=== PATIENT | male | born 1950 | race Caucasian/White ===

== ENCOUNTER 2017-10-06 11:43 | Inpatient (IN) | payer OTHER ==
[2017-10-06] VITALS (18 sets, daily range): BP systolic 87–179; BP diastolic 51–109; PULSE 58–96; RESP 20–34; TEMP 98.3; O2SAT 88–100
[~2017-10-06] VITALS: Ht 188 cm; Wt 111.2 kg
[2017-10-06] MEDS ORDERED: SODIUM CHLORIDE 0.9% FLUSH 10 ML FLUSH IVF PRN (12:00)
[2017-10-06 12:14] LABS: AUTOMATED NEUTROPHIL # 10.3 TH/MM3 (1.8-7.7); BASOPHIL % 0.2 % (0.0-2.0); EOSINOPHIL # 0.3 TH/MM3 (0-0.4); EOSINOPHIL % 1.8 % (0.0-4.0); HEMATOCRIT 41.9 % (39.0-51.0); HEMOGLOBIN 13.1 GM/DL (13.0-17.0); LYMPH % 34.6 % (9.0-44.0); LYMPHOCYTE # 6.3 TH/MM3 (1.0-4.8); MEAN CELL VOLUME 95.2 FL (80.0-100.0); MEAN CORPUSCULAR HEMOGLOBIN 29.8 PG (27.0-34.0); MEAN CORPUSCULAR HGB CONC 31.3 % (32.0-36.0); MEAN PLATELET VOLUME 9.4 FL (7.0-11.0); MONO % 6.7 % (0.0-8.0); MONOCYTE # 1.2 TH/MM3 (0-0.9); NEUT % 56.7 % (16.0-70.0); PLATELET COUNT 271 TH/MM3 (150-450); RED CELL DISTRIBUTION WIDTH 15.2 % (11.6-17.2); WHITE BLOOD COUNT 18.1 TH/MM3 (4.0-11.0)
[2017-10-06] MEDS ORDERED: PROPOFOL 1000 MG/100 ML INJ 100 ML IV PRN ×2 (12:15→13:15)
--- NOTE | 2017-10-06 12:21 | RADRPT ---
EXAM DATE/TIME: 10/06/2017 12:02 [facility] COMPARISON: No previous studies available for comparison. INDICATIONS : Post intubation. MEDICAL HISTORY : Unresponsive. SURGICAL HISTORY : Unresponsive. ENCOUNTER: Initial ACUITY: 1 day PAIN SCORE: Non-responsive. LOCATION: chest FINDINGS: Single view of the lungs demonstrates the endotracheal tube well above the level of the thoracic inle t with recommendation to advance the endotracheal tube approximately 6 cm. These findings were referr ed to Dr. Bailey of the ER. There is a nasogastric tube with the proximal port at the level of the ga stroesophageal junction. The lungs are hyperinflated but clear. Heart size is normal. Moderate tortuosity of the thoracic aort a. Osseous structures appear intact. CONCLUSION: The endotracheal tube is positioned above the level of the thoracic inlet. Recommend advancement appr oximately 6 cm. The lungs are hyperinflated but clear. Roxanne Wise MD on October 06, 2017 at 12:14 Board Certified Radiologist. This report was verified electronically.
[2017-10-06 12:25] LABS: INTERNATIONAL NORMALIZED RATIO 1.1 RATIO; PROTHROMBIN TIME - PATIENT 10.7 SEC (9.8-11.6)
[2017-10-06 12:30] LABS: BICARBONATE 24.9 MEQ/L (21.0-32.0); BLOOD UREA NITROGEN 19 MG/DL (7-18); CALCIUM 8.3 MG/DL (8.5-10.1); CHLORIDE 102 MEQ/L (98-107); CREATININE 1.41 MG/DL (0.60-1.30); GLOMERULAR FILTRATION RATE 43 ML/MIN (>89); GLUCOSE,RANDOM 244 MG/DL (74-106); MAGNESIUM 2.6 MG/DL (1.5-2.5); SODIUM (NA) 141 MEQ/L (136-145)
[2017-10-06 12:34] LABS: TROPONIN I LESS THAN 0.02 NG/ML (0.02-0.05)
[2017-10-06] MEDS: SODIUM CHLOR 0.9% 1000 ML INJ 1,000 ML IV SCH ×2 (12:34→22:45)
[2017-10-06] MEDS ORDERED: TERBUTALINE INJ 1 MG/ML AMP SQ PRN (12:45)
[2017-10-06] MEDS ORDERED: NURSING INFORMATION XX SCH (12:45)
[2017-10-06] MEDS ORDERED: CHLORHEXIDINE GLUCONATE 2 % 1 PACK (2 CLOTHS) TOP PRN (12:45)
[2017-10-06] MEDS ORDERED: SODIUM CHLOR 0.9% 1000 ML INJ 1,000 ML IV ONE (12:45)
--- NOTE | 2017-10-06 12:46 | PD ---
HPI . Code Chief Complaint: Code Blue Time Seen by Provider: 11:53 Travel History International Travel<30 days: No (UNABLE TO OBTAIN) Contact w/Intl Traveler<30days: No (UNABLE TO OBTAIN) Traveled to known affect area: No (UNABLE TO OBTAIN) History of Present Illness HPI This patient presented to us via [facility] status post a respiratory arrest. History is obtained entirely from the medics. We do not know the patient's name. There is no family available. Medics report that the patient himself called 911 with respiratory distress. They state on the line with him until the arrival of EMS. EMS reports that the door was locked on their arrival and that they had to wait for the fire department to break the door so that they can get to the patient. In the interim, the patient suffered a respiratory arrest. They believe that his total downtime was less than 5 minutes. He did have a pulse when they found him. He was intubated. They state that they lost his pulse as they were taking him downstairs. He was given a dose of epinephrine and chest compressions were done. On the next pulse check, perhaps 5 minutes later, he did have a pulse. Compressions were then stopped and he was brought to the hospital. [facility] reports that they were told that the patient had emphysema. They did try to search the apartment and did not find any oxygen or nebulizer machine or inhalers or any other medications. [facility] Past Medical History Medical History: Unable to Obtain Diminished Hearing: No Tetanus Vaccination: Unknown Past Surgical History Surgical History: Unable to Obtain Social History Alcohol Use: No (UNABLE TO OBTAIN) Tobacco Use: No (UNABLE TO OBTAIN) Substance Use: No Allergies-Medications (Allergen,Severity, Reaction): Coded Allergies: No Allergy Information Available (Unverified , 10/06/17) Reported Meds & Prescriptions Reported Meds & Active Scripts Active Active Prescriptions or Reported Medications Unobtainable Review of Systems ROS Limitations: Clinical Condition, Intubated Physical Exam Narrative GENERAL: Patient presents intubated. SKIN: warm/dry. No obvious bruising or abrasions noted. HEAD: Normocephalic. Atraumatic. EYES: Pupils initially are fixed and dilated. ENT: No nasal bleeding or discharge. Mucous membranes pink and moist. NECK: Supple. Atraumatic. CARDIOVASCULAR: Monitor shows a sinus rhythm. On initial pulse check, no pulse was palpated. He did not have any apical heart tones. He did have cardiac activity on ultrasound. RESPIRATORY: Breath sounds are markedly diminished. GASTROINTESTINAL: Abdomen soft. Nondistended. : Normal uncircumcised male. MUSCULOSKELETAL: No obvious deformities. NEUROLOGICAL: GCS 3 on presentation. PSYCHIATRIC: Unable to assess. Data Data Last Documented VS Vital Signs Date Time Temp Pulse Resp B/P (MAP) Pulse Ox O2 Delivery O2 Flow Rate FiO2 10/06/17 12:00 100 10/06/17 12:00 100 10/06/17 12:00 98.3 96 20 147/67 (93) Ventilator Orders Orders Electrocardiogram (10/06/17 11:53) Basic Metabolic Panel (Bmp) (10/06/17 11:53) Complete Blood Count With Diff (10/06/17 11:53) Magnesium (Mg) (10/06/17 11:53) Prothrombin Time / Inr (Pt) (10/06/17 11:53) Act Partial Throm Time (Ptt) (10/06/17 11:53) Troponin I (10/06/17 11:53) Chest, Single Ap (10/06/17 11:53) Ecg Monitoring (10/06/17 11:53) Bilateral Bp Monitoring (10/06/17 11:53) Iv Access Insert/Monitor (10/06/17 11:53) Oximetry (10/06/17 11:53) Oxygen Administration (10/06/17 11:53) Sodium Chloride 0.9% Flush (Ns Flush) (10/06/17 12:00) Admit Order (Ed Use Only) (10/06/17 ) Housing Development Specialist / Telemetry [id number] (10/06/17 12:00) Vital Signs (Adult) Q4H (10/06/17 12:00) Diet Npo (10/06/17 Lunch) Activity Bed Rest (10/06/17 12:00) Notify Dr: Other (10/06/17 12:00) Labs Laboratory Tests Test 10/06/17 12:02 White Blood Count 18.1 TH/MM3 Red Blood Count 4.40 MIL/MM3 Hemoglobin 13.1 GM/DL Hematocrit 41.9 % Mean Corpuscular Volume 95.2 FL Mean Corpuscular Hemoglobin 29.8 PG Mean Corpuscular Hemoglobin Concent 31.3 % Red Cell Distribution Width 15.2 % Platelet Count 271 TH/MM3 Mean Platelet Volume 9.4 FL Neutrophils (%) (Auto) 56.7 % Lymphocytes (%) (Auto) 34.6 % Monocytes (%) (Auto) 6.7 % Eosinophils (%) (Auto) 1.8 % Basophils (%) (Auto) 0.2 % Neutrophils # (Auto) 10.3 TH/MM3 Lymphocytes # (Auto) 6.3 TH/MM3 Monocytes # (Auto) 1.2 TH/MM3 Eosinophils # (Auto) 0.3 TH/MM3 Basophils # (Auto) 0.0 TH/MM3 CBC Comment AUTO DIFF Prothrombin Time 10.7 SEC Prothromb Time International Ratio 1.1 RATIO Activated Partial Thromboplast Time 26.9 SEC Blood Urea Nitrogen 19 MG/DL Creatinine 1.41 MG/DL Random Glucose 244 MG/DL Calcium Level 8.3 MG/DL Magnesium Level 2.6 MG/DL Sodium Level 141 MEQ/L Potassium Level 4.2 MEQ/L Chloride Level 102 MEQ/L Carbon Dioxide Level 24.9 MEQ/L Anion Gap 14 MEQ/L Estimat Glomerular Filtration Rate 43 ML/MIN Troponin I LESS THAN 0.02 NG/ML MDM Medical Decision Making Medical Screen Exam Complete: Yes Emergency Medical Condition: Yes Interpretation(s) His EKG shows a right bundle branch block but no obvious ischemic changes Differential Diagnosis Differential diagnosis includes primary cardiac arrest, respiratory arrest, head injury, drug intoxication, diabetic coma Narrative Course This patient presents to us status post a respiratory arrest. He was intubated by EMS. They report a brief loss of pulse which returned with epinephrine and compressions. On arrival here, he did not have an apical heart rate or palpable distal pulses. He did have cardiac activity on ultrasound. CPR was continued. He was given epinephrine 2 and bicarbonate 1. On subsequent pulse check, he does have palpable pulses in all 4 extremities including pedal pulses. At this point, the motor vehicle field representative was consulted. He immediately came to see the patient and has assumed the patient's care. Please see the code sheet for further details of the resuscitation. The patient did start having some spontaneous respiratory effort and started moving some. Propofol was initiated. OG tube and Banerjee catheter were placed by the nursing staff. Soft restraints were placed when he started moving. Critical Care Narrative Aggregate critical care time was 30 minutes. Time to perform other separately billable procedures was not included in the critical care time. My time did not include minutes spent treating any other patients simultaneously or on activities that did not directly contribute to the patient's treatment. The services I provided to this patient were to treat and/or prevent clinically significant deterioration due to respiratory arrest leading to cardiac arrest I provided critical care services requiring my management, as noted below: Chart data review, documentation time, medication orders and management, vital sign assessments/reviewing monitor data, ordering and reviewing lab tests, ordering and interpreting/reviewing x-rays and diagnostic studies, care of the patient and discussion of the patient with the admitting physicians Procedures Procedure Narrative Basic CPR and ACLS were directed by me for about 10 minutes. Emergency department cardiac ultrasound was performed emergently Vascular probe was used in the four-chamber apical revealing positive cardiac activity. Diagnosis Primary Impression: Respiratory arrest Additional Impressions: Cardiac arrest Return of spontaneous circulation Admitting Information Admitting Physician Requests: Admit Scripts Unable to Obtain Active Prescriptions or Reported Meds Condition: Serious Rosanna Bailey MD October 06, 2017 12:46
[2017-10-06 12:51] LABS: BANDS 3 % (0-6); LYMPHOCYTES 33 % (9-44); MONOCYTES 9 % (0-8); MYELOCYTES 6 % (0-0); POLYS (SEG NEUTROPHILS) 46 % (16-70)
[2017-10-06] MEDS: ARTIFICIAL TEARS OPTH SOLN 15 ML BTL EACH EYE SCH ×2 (13:00→16:38)
--- NOTE | 2017-10-06 13:12 | HHI.HP ---
HPI Service Critical Care Medicine Primary Care Physician Unknown Admission Diagnosis s/p respiratory followed by cardiac arrest with ROSC Diagnosis: Chief Complaint: Post cardiac arrest Travel History International Travel<30 Days: No (UNABLE TO OBTAIN) Contact w/Intl Traveler <30 Da: No (UNABLE TO OBTAIN) Traveled to Known Affected Are: No (UNABLE TO OBTAIN) History of Present Illness Elderly gentleman with unknown medical history, except known emphysema, brought in by paramedics post cardiac arrest. History is obtained entirely from the ED chart. Patient's name and age as well as comorbidities are unknown. There is no family available. Per ED chart patient called 911 for respiratory distress. On EMS arrival patient suffered a respiratory arrest. He was intubated in the field, downtime was less than 5 minutes. He was given 1 dose of epinephrine and CPR was done with spontaneous return of spontaneous circulation. On ED arrival patient was in PEA, therefore resuscitative efforts were continued and patient received an additional 2 rounds of CPR with 2 epinephrine being given. ROSC was obtained after approximately less than 5 minutes. CCM now consulted for ICU admission. Patient was seen in ER, unresponsive, with questionable myoclonic versus seizure-like activity. He did not receive any sedation. Review of Systems ROS Limitations: Intubated Past Family Social History Allergies: Coded Allergies: No Allergy Information Available (Unverified , 10/06/17) Past Medical History Emphysema, rest unknown Past Surgical History Unknown Reported Medications Reported Meds & Active Scripts Active Active Prescriptions or Reported Medications Unobtainable Active Ordered Medications Current Medications Medications (Trade) Dose Ordered Sig/Travis Route Start Time Stop Time Status Last Admin (NS Flush) 2 ml UNSCH PRN IVF 10/06/17 12:00 Propofol 100 ml @ 0 mls/hr TITRATE PRN IV 10/06/17 12:15 10/06/17 12:23 Sodium Chloride 1,000 ml @ 125 mls/hr Q8H IV 10/06/17 12:34 (Pepcid Inj) 20 mg Q12HR IV PUSH 10/06/17 21:00 (Tears Naturale Opth Soln) 1 drop TID EACH EYE 10/06/17 13:00 (Duoneb Neb) 1 ampule Q6HR NEB INH 10/06/17 16:00 ([facility] Nursing Information) 1 [id number] XX 10/06/17 12:45 (Chlorhexidine 2% Cloth) 3 pack Taper DAILY@04 TOP 10/07/17 04:00 10/03/18 03:59 (Chlorhexidine 2% Cloth) 3 pack UNSCH PRN TOP 10/06/17 12:45 (Peridex 0.12% Liq) 15 ml BID@08,20 MT 10/06/17 20:00 Propofol 100 ml @ 0 mls/hr TITRATE PRN IV 10/06/17 12:45 UNV (Ativan Inj) 2 mg Q4H PRN IV PUSH 10/06/17 12:45 Norepinephrine Bitartrate 250 ml TITRATE PRN IV 10/06/17 12:45 UNV (Brethine Inj) 1 mg UNSCH PRN SQ 10/06/17 12:45 Sodium Chloride 1,000 ml @ 999 mls/hr BOLUS ONCE IV 10/06/17 12:45 10/06/17 13:45 Family History Unknown Social History Unknown Physical Exam Vital Signs Vital Signs Date Time Temp Pulse Resp B/P (MAP) Pulse Ox O2 Delivery O2 Flow Rate FiO2 10/06/17 12:56 86 20 109/52 (71) 100 Ventilator 100 10/06/17 12:45 85 20 87/51 (63) 100 Ventilator 100 10/06/17 12:15 84 20 132/65 (87) 100 Ventilator 100 10/06/17 12:00 100 10/06/17 12:00 100 100 10/06/17 12:00 98.3 96 20 147/67 (93) 100 Ventilator 100 10/06/17 12:00 100 Ventilator 100 10/06/17 11:58 87 23 163/72 (102) 98 Ventilator 10/06/17 11:58 98 Ventilator 100 10/06/17 11:46 20 179/71 (107) 98 Physical Exam General - elderly-appearing gentleman, intubated, unresponsive, ill-appearing HEENT - pupils equal, non-reactive, sclerae anicteric, neck supple, no nuchal rigidity, neck veins not distended, no carotid bruit, orally intubated CV - regular S1, S2, no murmurs Chest - decreased breath sounds bilateral, no wheezes appreciated Abdomen - soft, appears non-tender, distended, BS present, no hepatomegaly, no splenomegaly Skin - no rashes, no cyanosis Extremities - warm and well perfused, no edema, + peripheral pulses, no clubbing Neuro - intubated, on no sedation, unresponsive, does not withdraw or grimaces to painful stimuli, pupils are equal and not reactive, no corneal, overbreathing the ventilator Laboratory Laboratory Tests Test 10/06/17 12:02 White Blood Count 18.1 Red Blood Count 4.40 Hemoglobin 13.1 Hematocrit 41.9 Mean Corpuscular Volume 95.2 Mean Corpuscular Hemoglobin 29.8 Mean Corpuscular Hemoglobin Concent 31.3 Red Cell Distribution Width 15.2 Platelet Count 271 Mean Platelet Volume 9.4 Neutrophils (%) (Auto) 56.7 Lymphocytes (%) (Auto) 34.6 Monocytes (%) (Auto) 6.7 Eosinophils (%) (Auto) 1.8 Basophils (%) (Auto) 0.2 Neutrophils # (Auto) 10.3 Lymphocytes # (Auto) 6.3 Monocytes # (Auto) 1.2 Eosinophils # (Auto) 0.3 Basophils # (Auto) 0.0 CBC Comment AUTO DIFF Differential Total Cells Counted 100 Neutrophils % (Manual) 46 Band Neutrophils % 3 Lymphocytes % 33 Monocytes % 9 Eosinophils % 3 Neutrophils # (Manual) 10.0 Myelocytes 6 Differential Comment FINAL DIFF MANUAL Platelet Estimate NORMAL Platelet Morphology Comment NORMAL Prothrombin Time 10.7 Prothromb Time International Ratio 1.1 Activated Partial Thromboplast Time 26.9 Blood Urea Nitrogen 19 Creatinine 1.41 Random Glucose 244 Calcium Level 8.3 Magnesium Level 2.6 Sodium Level 141 Potassium Level 4.2 Chloride Level 102 Carbon Dioxide Level 24.9 Anion Gap 14 Estimat Glomerular Filtration Rate 43 Troponin I LESS THAN 0.02 Result Diagram: 10/06/17 1202 10/06/17 1202 Caprini VTE Risk Assessment Caprini VTE Risk Assessment: Mod/High Risk (score >= 2) Caprini Risk Assessment Model Point Value = 1 Point Value = 2 Point Value = 3 Point Value = 5 Age 41-60 Minor surgery BMI > 25 kg/m2 Swollen legs Varicose veins or History of unexplained or recurrent spontaneous Oral contraceptives or hormone replacement Sepsis (< 1 month) Serious lung disease, including pneumonia (< 1 month) Abnormal pulmonary function Acute myocardial infarction Congestive heart failure (< 1 month) History of inflammatory bowel disease Medical patient at bed rest Age 61-74 Arthroscopic surgery Major open surgery (> 45 min) Laparoscopic surgery (> 45 min) Malignancy Confined to bed (> 72 hours) Immobilizing plaster cast Central venous access Age >= 75 History of VTE Family history of VTE Factor V Leiden Prothrombin [id number] Lupus anticoagulant Anticardiolipin antibodies Elevated serum homocysteine Heparin-induced thrombocytopenia Other congenital or acquired thrombophilia Stroke (< 1 month) Elective arthroplasty Hip, pelvis, or leg fracture Acute spinal cord injury (< 1 month) Prophylaxis Regimen Total Risk Factor Score Risk Level Prophylaxis Regimen 0-1 Low Early ambulation 2 Moderate Order ONE of the following: *Sequential Compression Device (SCD) *Heparin 5000 units SQ BID 3-4 Higher Order ONE of the following medications: *Heparin 5000 units SQ TID *Enoxaparin/Lovenox 40 mg SQ daily (WT < 150 kg, CrCl > 30 mL/min) *Enoxaparin/Lovenox 30 mg SQ daily (WT < 150 kg, CrCl > 10-29 mL/min) *Enoxaparin/Lovenox 30 mg SQ BID (WT < 150 kg, CrCl > 30 mL/min) AND/OR *Sequential Compression Device (SCD) 5 or more Highest Order ONE of the following medications: *Heparin 5000 units SQ TID (Preferred with Epidurals) *Enoxaparin/Lovenox 40 mg SQ daily (WT < 150 kg, CrCl > 30 mL/min) *Enoxaparin/Lovenox 30 mg SQ daily (WT < 150 kg, CrCl > 10-29 mL/min) *Enoxaparin/Lovenox 30 mg SQ BID (WT < 150 kg, CrCl > 30 mL/min) AND *Sequential Compression Device (SCD) Assessment and Plan Assessment and Plan 1. Post PEA arrest 2 -total downtime approximately less than 10 minutes 2. Acute hypoxic respiratory failure 3. Acute encephalopathy with concern for anoxia 4. Myoclonus versus seizure like activity 5. YOLIE 6. Leukocytosis without clear evidence of infection 1. Start hypothermia protocol 2. Sedation with propofol and fentanyl. Demerol for shivering and if still uncontrolled we will start cisatracurium 3. Ativan as needed for seizure-like activity 4. Labs per protocol 5. Continue PRVC 500/20/40% PEEP of 5, Ti 0.9 6. Vent bundle and bronchodilators 7. Check lactic acid 8. Serial cardiac enzymes and echocardiogram 9. EKG 10. EEG and if any evidence of seizure will start antiepileptics 11. Cooling catheter has been placed as well as arterial line 12. Advance ET tube and repeat chest x-ray 13. No clear evidence of infection. We will hold antibiotics for now and send cultures 14. Urine drug screen 15. GI prophylaxis with Pepcid 16. DVT prophylaxis with heparin and SCDs Spent 42 minutes of critical care time, excluding procedures, managing patient postarrest, initiating hypothermia protocol, fluids, ventilator, reviewing data , ordering labs and investigations, discussing with ED physician, nursing staff , RT. No family present at bedside. Patient is critically ill post cardiac arrest and he is at very high risk for further decompensation and . Addendum: Patient was reassessed multiple times throughout the day. He remains unresponsive on minimal sedation. Patient had some seizure activity on EEG. Started on Keppra. Patient was bronched, significant amount of gastric secretions suctioned. He was empirically started on antibiotics. Worsening oxygenation, requiring higher PEEP and 100% O2. I spent an additional 25 minutes of critical care time excluding procedures managing worsening oxygenation and seizure. Jorge Rincon MD October 06, 2017 13:12
[2017-10-06] MEDS ORDERED: IODIXANOL 320 MG/ML 10 ML VIAL (for Rad CT) IVCONTRAST ONE (13:15)
[2017-10-06] MEDS ORDERED: NOREPINEPHRINE-DEXTROSE DRIP 250 ML IV PRN (13:15)
[2017-10-06] MEDS ORDERED: RASS Change Order XX ONE (13:15)
--- NOTE | 2017-10-06 13:33 | RADRPT ---
EXAM DATE/TIME: 10/06/2017 12:38 [facility] COMPARISON: No previous studies available for comparison. INDICATIONS : Post cardiac arrest, altered mental status. RADIATION DOSE: 53.97 CTDIvol (mGy) MEDICAL HISTORY : Non-responsive. SURGICAL HISTORY : Non-responsive. ENCOUNTER: Initial ACUITY: 1 day PAIN SCALE: Non-responsive LOCATION: cranial TECHNIQUE: Multiple contiguous axial images were obtained of the head. Using automated exposure control and adj ustment of the mA and/or kV according to patient size, radiation dose was kept as low as reasonably a chievable to obtain optimal diagnostic quality images. DICOM format image data is available electro nically for review and comparison. Moderate motion artifact is evident FINDINGS: CEREBRUM: The ventricles are normal for age. No evidence of midline shift, mass lesion, hemorrhage or acute in farction. No extra-axial fluid collections are seen. POSTERIOR FOSSA: The cerebellum and brainstem are intact. The 4th ventricle is midline. The cerebellopontine angle i s unremarkable. EXTRACRANIAL: The visualized portion of the orbits is intact. SKULL: The calvaria is intact. No evidence of skull fracture. CONCLUSION: Moderate motion otherwise negative Ayo Ibanez MD FACR on October 06, 2017 at 13:29 Board Certified Radiologist. This report was verified electronically.
--- NOTE | 2017-10-06 13:35 | RADRPT ---
EXAM DATE/TIME: 10/06/2017 12:52 [facility] COMPARISON: No previous studies available for comparison. INDICATIONS : Post cardiac arrest; evaluate for embolism. IV CONTRAST: 50 cc Visipaque (iodixanol) IV RADIATION DOSE: 23.38 CTDIvol (mGy) MEDICAL HISTORY : Non-responsive. SURGICAL HISTORY : Non-responsive. ENCOUNTER: Initial ACUITY: 1 day PAIN SCALE: Non-responsive LOCATION: chest TECHNIQUE: Volumetric scanning of the chest was performed using a pulmonary embolism protocol MIP images were re constructed. Using automated exposure control and adjustment of the mA and/or kV according to patien t size, radiation dose was kept as low as reasonably achievable to obtain optimal diagnostic quality images. DICOM format image data is available electronically for review and comparison. Follow-up recommendations for detected pulmonary nodules are based at a minimum on nodule size and pa tient risk factors according to Fleischner Society Guidelines. FINDINGS: Course interstitial changes both lungs with apical pleural thickening. Minimal parenchymal changes left base. No pleural effusion No central pulmonary emboli. No mediastinal adenopathy Upper abdominal contents grossly unremarkable CONCLUSION: No central pulmonary emboli Course interstitial changes both lungs, fibrosis versus atypical failure. Ayo Ibanez MD FACR on October 06, 2017 at 13:31 Board Certified Radiologist. This report was verified electronically.
[2017-10-06] MEDS: PROPOFOL 1000 MG/100 ML INJ 100 ML IV PRN (14:00)
[2017-10-06 14:06] LABS: BILIRUBIN, URINE NEG (NEG); BLOOD, URINE MOD (NEG); GLUCOSE,URINE TRACE mg/dL (NEG); KETONE, URINE NEG (NEG); MUCUS URINE FEW /lpf (OCC); NITRITE,URINE NEG (NEG); SQUAMOUS EPITHELIAL CELL URINE <1 /hpf (0-5); URINE COLOR YELLOW (YELLW/STRAW); URINE LEUKOCYTE ESTERASE NEG (NEG)
[2017-10-06] MEDS ORDERED: fentaNYL DRIP 250 ML IV PRN (14:15)
--- NOTE | 2017-10-06 14:28 | PD.PROCEDR ---
Central Line Procedure REASON FOR PROCEDURE Central venous access PROCEDURE PERFORMED Cooling catheter placement CONSENT Informed consent for procedure was not obtained since the procedure was emergent and there was no family available to provide consent. ANESTHESIA Local injection of 1% Lidocaine DESCRIPTION OF THE PROCEDURE The patient was placed in supine, mild Trendelenburg position. The area was exposed and cleansed with ChloraPrep, times two. Large sterile drape was used to cover the patient, with the site exposed, under sterile conditions including cap, face mask, sterile gown, and sterile gloves. On single attempt, the introducer needle was inserted with negative pressure in syringe and venous flash was obtained. The guide wire was then advanced without any restriction and the needle was removed. The dilator was used without any complications. Using Seldinger technique the Quatro catheter was advanced over the guide wire to a depth of 43 centimeters. The guide wire was removed. All ports were aspirated with dark venous blood return and flushed easily with sterile saline. All ports were capped. Antibiotic disc was placed around central line at puncture site. The central line was secured to the skin with two interrupted 2.0 silk sutures. The area was bandaged with sterile see-through central line bandage. RADIOLOGICAL DATA Ultrasound guidance was used to locate the right femoral vein. Doppler/color flow was used to confirm venous flow. COMPLICATIONS: No apparent complications ESTIMATED BLOOD LOSS: Less than 1 cc. Jorge Rincon MD October 06, 2017 14:28
[2017-10-06] MEDS ORDERED: NOREPINEPHRINE INJ 4 MG in SODIUM CHLOR 0.9% 250 ML INJ 246 ML IV PRN (14:45)
[2017-10-06 14:49] LABS: MAGNESIUM 2.6 MG/DL (1.5-2.5); PHOSPHORUS 7.9 MG/DL (2.5-4.9)
--- NOTE | 2017-10-06 14:54 | RADRPT ---
EXAM DATE/TIME: 10/06/2017 15:19 [facility] COMPARISON: CHEST SINGLE AP, October 06, 2017, 12:02. INDICATIONS : Short of Breath MEDICAL HISTORY : Non responsive SURGICAL HISTORY : Non responsive ENCOUNTER: Subsequent ACUITY: 1 day PAIN SCORE: Non-responsive. LOCATION: chest FINDINGS: Moderate hyperinflation. ET tube at thoracic inlet lungs are clear. No pneumothorax. No failure CONCLUSION: Hyperinflation, ET tube at thoracic inlet otherwise negative Ayo Ibanez MD FACR on October 06, 2017 at 14:50 Board Certified Radiologist. This report was verified electronically.
[2017-10-06] MEDS: RESP: ALBUTEROL 2.5 MG/IPRATROPIUM 0.5 MG NEB (SCH) INH ×2 (14:56→20:53)
[2017-10-06] MEDS: MEPERIDINE HCL 25 MG/ML VIAL IV PUSH PRN ×3 (15:17→23:07)
[2017-10-06] MEDS ORDERED: ROCURONIUM INJ 50 MG/5 ML VIAL ONE (15:30)
[2017-10-06] MEDS ORDERED: ROCURONIUM INJ 50 MG/5 ML VIAL IV ONE (16:30)
--- NOTE | 2017-10-06 16:34 | PD.PROCEDR ---
Procedure Note Procedure Endotracheal Intubation Diagnosis: Cardiac arrest, acute respiratory failure Indications: Patient already intubated but ET tube very high not able to advance it further Consent: Not obtained due to the emergency of the procedure and to the fact that there was no family available for consent Anesthesia: Propofol infusion was continued, rocuronium 50 mg 1 dose was given Description of the Procedure: The patient was positioned in the sniffing position. Pre-oxygenation was performed using 100% O2 via the ventilator. A video laryngoscope (Glidescope) size 4 was used for laryngoscopy and a Grade 1 view was obtained. An 8 mm cuffed endotracheal tube was inserted atraumatically through the vocal cords. Confirmation of correct endotracheal tube placement was made by equal and bilateral breath sounds and colorimetric CO2 detection. The endotracheal tube was secured at 24 cm at the teeth. There were no immediate complications noted. The patient remained hemodynamically stable throughout the procedure. A chest x-ray has been ordered. Of note, initially tube exchange was attempted but once the new ET tube was inserted I had color change but no clear breath sounds were heard. Tube was removed and reintubation was attempted. Patient was intubated on first attempt however there was some resistance passing the ET tube after it past the vocal cords. Patient's O2 sat remained at 100% during the whole procedure. Jorge Rincon MD October 06, 2017 16:34
[2017-10-06] MEDS: CISATRACURIUM INJ 100 MG in SODIUM CHLOR 0.9% 250 ML INJ 250 ML IV PRN (16:40)
[2017-10-06] MEDS: HEPARIN SODIUM - SQ 10,000 UNITS/ML VIAL SQ SCH ×2 (16:40→19:53)
--- NOTE | 2017-10-06 16:40 | PD.PROCEDR ---
Procedure Note Procedure Procedure: Fiberoptic Bronchoscopy Diagnosis: Cardiac arrest, acute respiratory failure Indications: Acute respiratory failure, increased purulent secretions Consent: Not obtained, due to the emergency of the situation and there was no family present at bedside Anesthesia: Propofol drip was continued, patient received rocuronium during the endotracheal intubation Description of the Procedure: The patient was sedated and mechanically ventilated. The patient was placed on 100% FIO2 and a volume control mode of ventilation. The fiberoptic bronchoscopy was inserted via the ET tube. The trachea, right and left mainstem bronchi, and sub-segmental bronchi were evaluated. The endobronchial anatomy was normal. No endobronchial lesions identified. Findings: Thin copious amount of gastric secretions BAL samples: From left lower lobe The patient tolerated the procedure well with no hemodynamic instability or hypoxia. There were no immediate complications noted. At the conclusion of the procedure, the patient was placed back on their pre-procedure ventilatory settings. There was minimal EBL. A chest x-ray has been ordered. Jorge Rincon MD October 06, 2017 16:40
--- NOTE | 2017-10-06 17:01 | RADRPT ---
EXAM DATE/TIME: 10/06/2017 17:32 [facility] COMPARISON: CHEST SINGLE AP, October 06, 2017, 15:19. INDICATIONS : ET tube exchange. MEDICAL HISTORY : None. SURGICAL HISTORY : None. ENCOUNTER: Initial ACUITY: 1 day PAIN SCORE: Non-responsive. LOCATION: Bilateral chest FINDINGS: ET tube and nasogastric tube in good position. Stable minimal bibasilar parenchymal changes. The heart and pulmonary vascularity are normal. CONCLUSION: ET tube and nasogastric tube in good position. Ayo Ibanez MD FACR on October 06, 2017 at 16:58 Board Certified Radiologist. This report was verified electronically.
[2017-10-06] MEDS ORDERED: MIDAZOLAM 100 MG/100 ML INJ 100 ML IV PRN (17:15)
--- NOTE | 2017-10-06 17:15 | MG ---
cc: Kim Timmons MD, Dalia MD EEG RECORD [id number] REFERRING PHYSICIAN: Dr. Rincon INDICATION: Intubated with photic done. Diprivan at 10 mcg, unresponsive on code cool. Male of unknown age. Called EMS went into respiratory distress. Took EMS 5 minutes to get to him due to locked door, lost pulse. CPR done. MEDICATIONS: 1. Demerol. 2. Propofol. 3. Norepinephrine on code cool DESCRIPTION OF RECORD: There is quite a bit of whole body shaking artifact. Difficult to tell any background true rhythm, more artifact in the frontal fuentes, all myogenic unfortunately. EKG is artifactual as well. There is no driving response to photic stimulation. IMPRESSION: Poor quality electroencephalogram, unable to detect to determine a true background rhythm given the artifact in this recording. However, no gross epileptic activity noted. Likely will need a repeat study at some point. Clinical correlation. MD EDU Dinh/ , 03:21 PM , 05:14 PM
[2017-10-06] MEDS: levETIRAcetam INJ 100 ML IV SCH ×2 (17:43→19:53)
[2017-10-06] MEDS: PIPERACIL-TAZO 3.375 GM PREMIX 50 ML IV SCH ×2 (17:46→23:06)
[2017-10-06] MEDS: CHLORHEXIDINE 0.12% (ORAL KIT) 15 ML CUP MT SCH (19:39)
[2017-10-06] MEDS: FAMOTIDINE 20 MG/2 ML VIAL IV PUSH SCH (19:53)
[2017-10-07] VITALS (19 sets, daily range): BP systolic 49–181; BP diastolic 39–96; PULSE 69–125; RESP 20; O2SAT 87–100
[2017-10-07] MEDS: CHLORHEXIDINE GLUCONATE 2 % 1 PACK (2 CLOTHS) TOP SCH (03:44)
[2017-10-07] MEDS: MEPERIDINE HCL 25 MG/ML VIAL IV PUSH PRN (04:01)
[2017-10-07] MEDS: RESP: ALBUTEROL 2.5 MG/IPRATROPIUM 0.5 MG NEB (SCH) INH ×4 (04:06→20:48)
[2017-10-07 04:07] LABS: AUTOMATED NEUTROPHIL # 25.4 TH/MM3 (1.8-7.7); BASOPHIL % 0.1 % (0.0-2.0); EOSINOPHIL % 0.1 % (0.0-4.0); HEMATOCRIT 46.8 % (39.0-51.0); HEMOGLOBIN 15.2 GM/DL (13.0-17.0); LYMPH % 3.8 % (9.0-44.0); MEAN CELL VOLUME 90.8 FL (80.0-100.0); MEAN CORPUSCULAR HEMOGLOBIN 29.4 PG (27.0-34.0); MEAN CORPUSCULAR HGB CONC 32.4 % (32.0-36.0); MEAN PLATELET VOLUME 8.5 FL (7.0-11.0); MONO % 4.1 % (0.0-8.0); MONOCYTE # 1.1 TH/MM3 (0-0.9); NEUT % 91.9 % (16.0-70.0); PLATELET COUNT 225 TH/MM3 (150-450); RED BLOOD COUNT 5.15 MIL/MM3 (4.50-5.90); RED CELL DISTRIBUTION WIDTH 15.3 % (11.6-17.2); WHITE BLOOD COUNT 27.6 TH/MM3 (4.0-11.0)
[2017-10-07 04:10] LABS: INTERNATIONAL NORMALIZED RATIO 1.1 RATIO; PROTHROMBIN TIME - PATIENT 10.9 SEC (9.8-11.6)
[2017-10-07 04:28] LABS: ALBUMIN 2.6 GM/DL (3.4-5.0); CALCIUM-PROTEIN CORRECTED 7.6 MG/DL (8.5-10.1); CREATININE 0.88 MG/DL (0.60-1.30); MAGNESIUM 1.8 MG/DL (1.5-2.5); PHOSPHORUS 3.5 MG/DL (2.5-4.9); TOTAL BILIRUBIN ADULT 0.7 MG/DL (0.2-1.0); TOTAL PROTEIN 5.9 GM/DL (6.4-8.2)
--- NOTE | 2017-10-07 04:41 | RADRPT ---
EXAM DATE/TIME: 10/07/2017 04:28 [facility] COMPARISON: CHEST SINGLE AP, October 06, 2017, 17:32. INDICATIONS : Shortness of breath, MEDICAL HISTORY : None. SURGICAL HISTORY : None. ENCOUNTER: Subsequent ACUITY: 2 days PAIN SCORE: Non-responsive. LOCATION: Bilateral chest FINDINGS: 2 AP semierect views of the chest were obtained and again demonstrate the endotracheal tube in place with the tip proximally 5 cm above the og. Nasogastric tube remains in place and is seen coursing through the esophagus into the stomach. There is new focal consolidation in the right lung. Infiltra te is present in both lung bases. The heart size remains within normal limits. The costophrenic angle s may be mildly blunted. CONCLUSION: 1. New focal consolidation in the right lung base most characteristic of pneumonia. 2. More diffuse opacity is present in both lung bases as well. Duarte Reyes MD on October 07, 2017 at 4:38 Board Certified Radiologist. This report was verified electronically.
[2017-10-07] MEDS: CISATRACURIUM INJ 100 MG in SODIUM CHLOR 0.9% 250 ML INJ 250 ML IV PRN ×3 (04:55→21:11)
[2017-10-07] MEDS: PIPERACIL-TAZO 3.375 GM PREMIX 50 ML IV SCH ×3 (05:18→17:38)
[2017-10-07] MEDS: SODIUM CHLOR 0.9% 1000 ML INJ 1,000 ML IV SCH ×3 (06:25→20:34)
[2017-10-07] MEDS ORDERED: Vancomycin Consult Pharmacy 1 EA OTHER SCH (06:30)
[2017-10-07] MEDS: levETIRAcetam INJ 100 ML IV SCH ×2 (07:55→21:14)
[2017-10-07] MEDS: FAMOTIDINE 20 MG/2 ML VIAL IV PUSH SCH ×2 (07:55→21:13)
[2017-10-07] MEDS: CHLORHEXIDINE 0.12% (ORAL KIT) 15 ML CUP MT SCH ×2 (07:56→21:17)
[2017-10-07] MEDS: HEPARIN SODIUM - SQ 10,000 UNITS/ML VIAL SQ SCH ×2 (07:56→21:12)
[2017-10-07] MEDS ORDERED: VANCOMYCIN INJ 2,000 MG in SODIUM CHLORID 0.9% 500 ML INJ 500 ML IV ONE (08:00)
[2017-10-07 08:27] LABS: BANDS 19 % (0-6); LYMPHOCYTES 1 % (9-44); MONOCYTES 4 % (0-8); MYELOCYTES 2 % (0-0); NEUTROPHIL # MANUAL DIFF 26.2 TH/MM3 (1.8-7.7); POLYS (SEG NEUTROPHILS) 74 % (16-70)
[2017-10-07] MEDS: LORazepam 2 MG/ML VIAL IV PUSH PRN (08:55)
[2017-10-07] MEDS: ARTIFICIAL TEARS OPTH SOLN 15 ML BTL EACH EYE SCH ×3 (09:00→17:38)
[2017-10-07] MEDS ORDERED: FOSPHENYTOIN IV ONE (10:00)
[2017-10-07] MEDS ORDERED: SODIUM CHLORIDE IV ONE (10:00)
[2017-10-07] MEDS ORDERED: NOREPINEPHRINE 4 MG/4 ML AMP ONE (10:28)
[2017-10-07 10:49] LABS: BICARBONATE 25.7 MEQ/L (21.0-32.0); CALCIUM 6.5 MG/DL (8.5-10.1); CREATININE 1.01 MG/DL (0.60-1.30); MAGNESIUM 1.7 MG/DL (1.5-2.5)
[2017-10-07] MEDS: VASOPRESSIN 40 U/D5W 100 ML Hypotension, do NOT titrate (enter ordered rate) IV SCH ×2 (11:07)
--- NOTE | 2017-10-07 11:11 | MB ---
cc: Kim Timmons MD DATE: 10/07/2017 AKA: Carlos Gómez. HISTORY OF PRESENT ILLNESS: This is a 67-year-old man with a history of COPD, brought in by paramedics in cardiac arrest. On arrival by EMS, he was in respiratory arrest, intubated in the field. Downtime per chart notes states less than 5 minutes. He was given a dose of epinephrine and CPR was performed. Spontaneous circulation returned in the ED, he was in PEA and received 2 more rounds of CPR with 2 epinephrine being given. He is now intubated in the ICU. Had seizures on his EEG this morning, was given some Ativan and his blood pressure decreased significantly and now is on a pressor. Blood pressure returning to normal. He was started on Keppra last night. PAST MEDICAL HISTORY: As far as we know: Emphysema. Other history: Unknown. PHYSICAL EXAMINATION: Vitals currently, per chart. He is intubated on a ventilator on fentanyl. He is code cool as well and he is on a paralytic, so there is no exam. He does not withdraw, does not move. There is no withdrawal whatsoever. Does not follow any commands. LABORATORY DATA: Reviewed. His white count today is 27.6, platelets are 225,000, hemoglobin 15.2. Coag panel is normal. Chemistries show a calcium of 7. Lactic acid 1.4, glucose 201, AST 82, ALT 167, albumin 2.6. Urine 19 RBCs. Culture was not indicated. Tox screen was negative. Microbiology is still pending. He had a chest x-ray this morning that shows new focal consolidation right lung base, likely pneumonia. Diffuse opacities in both lung bases as well. CT angiography did not yield any PE. Head CT showed moderate motion artifact, but negative otherwise. His EEG last night, there was a lot of artifact, but once Diprivan was given there were no more. The background was very difficult to determine, is a very poor quality; however, I am told today's EEG and I need to look at, had spike and wave discharges. ASSESSMENT AND PLAN: This is a 67-year-old man status post respiratory arrest. CPR with what looks like seizures, likely due to anoxic encephalopathy. Recommend repeating an EEG. Keep him on EEG monitoring as possible for the mere fact that they are only witnessed electroencephalographically. I am going to load him with some Cerebyx and keep him on a maintenance dose. Also, try to get a repeat CT tomorrow if possible. Continue to monitor and make further recommendations. Also, continue Cerebyx 100 mg q. 8 hours with a level. MD EDU Dinh/AMIE , 10:19 AM , 11:10 AM
[2017-10-07] MEDS ORDERED: MAGNESIUM SULFATE 1 GM PREMIX 100 ML IV ONE (11:15)
[2017-10-07] MEDS ORDERED: GLUCAGON 1 MG/ML VIAL OTHER PRN (11:15)
[2017-10-07] MEDS ORDERED: ALBUMIN 5% INJ 500 ML IV ONE (11:15)
[2017-10-07] MEDS ORDERED: DEXTROSE 50% IN WATER 50 ML VIAL(D50) IV PUSH PRN (11:15)
--- NOTE | 2017-10-07 11:22 | HHI.CCPN ---
Subjective Remarks/Hospital Course 10/06: Elderly gentleman with unknown medical history, except known emphysema, brought in by paramedics post cardiac arrest. History is obtained entirely from the ED chart. Patient's name and age as well as comorbidities are unknown. There is no family available. Per ED chart patient called 911 for respiratory distress. On EMS arrival patient suffered a respiratory arrest. He was intubated in the field, downtime was less than 5 minutes. He was given 1 dose of epinephrine and CPR was done with spontaneous return of spontaneous circulation. On ED arrival patient was in PEA, therefore resuscitative efforts were continued and patient received an additional 2 rounds of CPR with 2 epinephrine being given. ROSC was obtained after approximately less than 5 minutes. [facility] now consulted for ICU admission. Patient was seen in ER, unresponsive, with questionable myoclonic versus seizure-like activity. He did not receive any sedation. 10/07: Patient continued to worsen over the night, with progressive hypercapnia and hypoxia, requiring pressure control ventilation with inverse ratio. Currently on a PEEP of 8 at 100% O2. He continues to require 24 hour EEG monitoring. Patient patient was noticed to have episode of seizure on EEG therefore he received Ativan and fosphenytoin with subsequent drop in blood pressure. He received 1 L fluid bolus and he was started on norepinephrine infusion. Currently on norepinephrine at 15 mcg/min. Morning chest x-ray reviewed, developing bilateral infiltrates and new right lower lobe infiltrate. Of note, patient was identified as being Mr. Arellano, recently admitted to our hospital for acute hypercapnic respiratory failure, acute COPD exacerbation, extubated last Sunday discharged on Sunday morning. Objective Vital Signs Date Time Temp Pulse Resp B/P (MAP) Pulse Ox O2 Delivery O2 Flow Rate FiO2 10/07/17 11:07 83 104/67 10/07/17 09:29 95 100 10/07/17 04:00 92.1 20 10/06/17 12:56 Ventilator Intake and Output 10/07/17 10/07/17 10/08/17 08:00 16:00 00:00 Intake Total 1454 ml Output Total 1900 ml Balance -446 ml Result Diagram: 10/07/17 0340 10/07/17 0930 Other Results Microbiology Date/Time Source Procedure Growth Status 10/06/17 17:02 Blood Peripheral Aerobic Blood Culture - Preliminary NO GROWTH IN 1 DAY Resulted 10/06/17 17:02 Blood Peripheral Anaerobic Blood Culture - Preliminary NO GROWTH IN 1 DAY Resulted 10/06/17 16:50 Blood Peripheral Aerobic Blood Culture - Preliminary NO GROWTH IN 1 DAY Resulted 10/06/17 16:50 Blood Peripheral Anaerobic Blood Culture - Preliminary NO GROWTH IN 1 DAY Resulted 10/06/17 16:19 Sputum Endotracheal Gram Stain - Final Resulted 10/06/17 16:19 Sputum Endotracheal Sputum Culture Pending Resulted 10/06/17 13:32 Sputum Endotracheal Gram Stain - Final Resulted 10/06/17 13:32 Sputum Endotracheal Sputum Culture Pending Resulted Laboratory Tests Test 10/06/17 14:45 10/06/17 17:30 10/06/17 19:25 10/06/17 21:34 Blood Gas Puncture Site ART LINE ART LINE ART LINE ART LINE Blood Gas Patient Temperature 98.6 98.6 98.6 98.6 Blood Gas HCO3 27 mmol/L (22-26) 28 mmol/L (22-26) 29 mmol/L (22-26) 27 mmol/L (22-26) Blood Gas Base Excess 0.6 mmol/L (-2-2) 0.6 mmol/L (-2-2) 1.2 mmol/L (-2-2) 0.9 mmol/L (-2-2) Blood Gas Oxygen Saturation 89 % (90-100) 88 % (90-100) 96 % (90-100) 89 % ( 90-100) Arterial Blood pH 7.23 (7.380-7.420) 7.19 (7.380-7.420) 7.19 (7.380-7.420) 7.27 (7.380-7.420) Arterial Blood Partial Pressure CO2 68 mmHg (38-42) 77 mmHg (38-42) 79 mmHg (38-42) 61 mmHg (38-42) Arterial Blood Partial Pressure O2 73 mmHg (61-120) 71 mmHg (61-120) 124 mmHg (61-120) 70 mmHg (61-120) Arterial Blood Oxygen Content 16.1 Vol % (12.0-20.0) 16.8 Vol % (12.0-20.0) 19.1 Vol % (12.0-20.0) 18.3 Vol % (12.0-20.0) Arterial Blood Carboxyhemoglobin 0.8 % (0-4) 0.8 % (0-4) 0.7 % (0-4) 0.9 % (0-4) Arterial Blood Methemoglobin 1.4 % (0-2) 1.3 % (0-2) 1.3 % (0-2) 1.4 % (0-2) Blood Gas Hemoglobin 12.9 G/DL (12.0-16.0) 13.7 G/DL (12.0-16.0) 14.2 G/DL (12.0-16.0) 14.5 G/DL (12.0-16.0) Oxygen Delivery Device VENTILATOR VENTILATOR VENTILATOR VENTILATOR Blood Gas Ventilator Setting PRVC/AC500/20/5PEEP PRVC/AC450/32 PRVC/AC PC/AC Blood Gas Inspired Oxygen 40 % 100 % 100 % 70 % Test 10/07/17 05:45 10/07/17 09:32 Blood Gas Puncture Site ART LINE ART LINE Blood Gas Patient Temperature 98.6 98.6 Blood Gas HCO3 24 mmol/L (22-26) 22 mmol/L (22-26) Blood Gas Base Excess -1.4 mmol/L (-2-2) -4.4 mmol/L (-2-2) Blood Gas Oxygen Saturation 89 % (90-100) 90 % (90-100) Arterial Blood pH 7.29 (7.380-7.420) 7.25 (7.380-7.420) Arterial Blood Partial Pressure CO2 52 mmHg (38-42) 51 mmHg (38-42) Arterial Blood Partial Pressure O2 68 mmHg (61-120) 75 mmHg (61-120) Arterial Blood Oxygen Content 19.1 Vol % (12.0-20.0) 17.4 Vol % (12.0-20.0) Arterial Blood Carboxyhemoglobin 0.9 % (0-4) 0.9 % (0-4) Arterial Blood Methemoglobin 1.3 % (0-2) 1.3 % (0-2) Blood Gas Hemoglobin 15.2 G/DL (12.0-16.0) 13.8 G/DL (12.0-16.0) Oxygen Delivery Device VENTILATOR VENTILATOR Blood Gas Ventilator Setting PC/AC Blood Gas Inspired Oxygen 100 % 100 % Imaging Last Impressions Chest X-Ray 10/07/17 0000 Signed Impressions: Service Date/Time: Saturday, October 07, 2017 04:28 - CONCLUSION: 1. New focal consolidation in the right lung base most characteristic of pneumonia. 2. More diffuse opacity is present in both lung bases as well. Duarte Reyes MD CT Angiography 10/06/17 1219 Signed Impressions: Service Date/Time: Friday, October 06, 2017 12:52 - CONCLUSION: No central pulmonary emboli Course interstitial changes both lungs, fibrosis versus atypical failure. Ayo Ibanez MD FACR Head CT 10/06/17 1216 Signed Impressions: Service Date/Time: Friday, October 06, 2017 12:38 - CONCLUSION: Moderate motion otherwise negative Ayo Ibanez MD FACR Objective Remarks General - elderly gentleman, intubated, unresponsive, ill-appearing HEENT - pupils are equal, non-reactive, sclerae are anicteric, neck is supple, no rigidity, no JVD, orally intubated CV - regular heart sound, no murmurs Chest - decreased air entry bilateral, no wheezes appreciated Abdomen - soft, appears non-tender, distended, BS present Skin - no rashes, no cyanosis Extremities - no edema, + peripheral pulses, no clubbing Neuro - limited, intubated, unresponsive, paralyzed A/P Assessment and Plan 1. Post PEA arrest 2 -total downtime approximately less than 10 minutes, undergoing hypothermia protocol 2. Acute on chronic hypoxic and hypercapnic respiratory failure 3. Acute encephalopathy with concern for anoxia 4. Status epilepticus 5. Circulatory shock 6. YOLIE 7. Aspiration pneumonia 8. Hypomagnesemia and hypocalcemia 1. Continue hypothermia protocol 2. Sedation as needed with Versed and paralysis with cisatracurium for shivering 3. Change pressure control ventilation to PRVC, 550/26/100%, PEEP of 10. No auto PEEP, PIP is 28 4. Start inhaled Flolan 5. Start steroids 6. Continue norepinephrine to keep map above 65 7. 500 mL's albumin bolus 8. Replete calcium and magnesium 9. Continue Zosyn and add Vanco 10. Cultures sent yesterday 11. Continuous EEG and neurology consult 12. Loaded with Keppra yesterday and now loaded with fosphenytoin 13. Echocardiogram 14. GI prophylaxis with Pepcid 15. DVT prophylaxis with heparin and SCDs 16. Patient known to palliative care service since last admission. Will consult on Mendel 17. In his living will patient does not want any of his family to be contacted. We will comply with patient's wishes. I spent 34 minutes of critical care time, excluding procedures, managing fluids , pressors, electrolytes, ventilator, reviewing data, ordering labs and investigations, discussing nursing staff, RT. No family present at bedside. Patient is critically ill post cardiac arrest and he is at very high risk for further decompensation and . Jorge Rincon MD October 07, 2017 11:22
[2017-10-07] MEDS: methylPREDNISolone SOD SUCC 40 MG/1 ML VIAL IV PUSH SCH ×2 (11:25→17:38)
[2017-10-07 11:28] LABS: CALCIUM-PROTEIN CORRECTED 7.6 MG/DL (8.5-10.1); TOTAL PROTEIN 4.8 GM/DL (6.4-8.2)
[2017-10-07] MEDS: MIDAZOLAM 50 MG/NS 50 ML DRIP Premix IV PRN ×2 (11:45→23:00)
[2017-10-07] MEDS: EPOPROSTENOL NEB SOLUTION 50 NG/KG/MIN 100 ML NEB SCH ×4 (12:00→20:00)
[2017-10-07] MEDS: INSULIN NovoLIN REGULAR SUPPLEMENTAL SCALE SQ SCH ×3 (12:55→21:00)
[2017-10-07] MEDS ORDERED: CALCIUM GLUCONATE INJ 1 GM in SODIUM CHLORIDE 0.9% INJ 100 ML IV ONE (13:00)
[2017-10-07] MEDS: FOSPHENYTOIN SODIUM 100 MG PE/2 ML VIAL IV SCH ×2 (15:02→21:13)
[2017-10-07] MEDS: ARTIFICIAL TEARS OPTH OINT 3.5 APPLIC/3.5 GM TUBO EACH EYE PRN (16:31)
[2017-10-07 16:35] LABS: CALCIUM 7.1 MG/DL (8.5-10.1); CREATININE 0.93 MG/DL (0.60-1.30); MAGNESIUM 2.1 MG/DL (1.5-2.5)
[2017-10-07 16:51] LABS: CALCIUM-PROTEIN CORRECTED 8.1 MG/DL (8.5-10.1); TOTAL PROTEIN 5.3 GM/DL (6.4-8.2)
--- NOTE | 2017-10-07 17:22 | EKG ---
Date Performed: 10/06/2017 Time Performed: 21:05:25 PTAGE: 89 years EKG: Sinus rhythm WITH OCCASIONAL VENTRICULAR PREMATURE COMPLEXES ABNORMAL ECG NO PREVIOUS TRACING DOCTOR: Kobe Solomon Interpretating Date/Time 10/07/2017 17:20:05
[2017-10-07] MEDS: VANCOMYCIN 1,500 MG/NS 500 ML IV SCH ×2 (21:17)
[2017-10-07 22:37] LABS: BICARBONATE 23.3 MEQ/L (21.0-32.0); CALCIUM 7.3 MG/DL (8.5-10.1); CREATININE 0.98 MG/DL (0.60-1.30); MAGNESIUM 1.9 MG/DL (1.5-2.5)
[2017-10-07 22:47] LABS: PHENYTOIN (DILANTIN) 7.7 MCG/ML (10.0-20.0)
[2017-10-07 22:50] LABS: CALCIUM-PROTEIN CORRECTED 8.5 MG/DL (8.5-10.1)
[2017-10-08] VITALS (18 sets, daily range): BP systolic 92–144; BP diastolic 49–71; PULSE 95–110; RESP 26; TEMP 97.7–98.7; O2SAT 94–100
[2017-10-08] MEDS: methylPREDNISolone SOD SUCC 40 MG/1 ML VIAL IV PUSH SCH ×5 (00:39→22:22)
[2017-10-08] MEDS: PIPERACIL-TAZO 3.375 GM PREMIX 50 ML IV SCH ×5 (00:39→22:20)
[2017-10-08] MEDS: CHLORHEXIDINE GLUCONATE 2 % 1 PACK (2 CLOTHS) TOP SCH (00:40)
[2017-10-08] MEDS: EPOPROSTENOL NEB SOLUTION 50 NG/KG/MIN 100 ML NEB SCH ×6 (03:25→20:00)
[2017-10-08] MEDS: FOSPHENYTOIN SODIUM 100 MG PE/2 ML VIAL IV SCH ×3 (04:08→22:13)
[2017-10-08] MEDS: SODIUM CHLOR 0.9% 1000 ML INJ 1,000 ML IV SCH (04:08)
[2017-10-08] MEDS: CISATRACURIUM INJ 100 MG in SODIUM CHLOR 0.9% 250 ML INJ 250 ML IV PRN (04:08)
[2017-10-08] MEDS: RESP: ALBUTEROL 2.5 MG/IPRATROPIUM 0.5 MG NEB (SCH) INH ×4 (04:20→20:07)
--- NOTE | 2017-10-08 05:19 | RADRPT ---
EXAM DATE/TIME: 10/08/2017 04:56 [facility] COMPARISON: CHEST SINGLE AP, October 07, 2017, 4:28. INDICATIONS : Shortness of breath, possible pulmonary disease. MEDICAL HISTORY : None. SURGICAL HISTORY : None. ENCOUNTER: Subsequent ACUITY: 3 days PAIN SCORE: Non-responsive. LOCATION: Bilateral chest FINDINGS: A single view of the chest demonstrates endotracheal tube in good position. NG enters stomach. Bilate ral mostly basilar airspace consolidation and small effusions. No pneumothorax. CONCLUSION: 1. Basilar airspace consolidation, right greater than left with small effusions. Endotracheal tube an d nasogastric tube in good position. Dar Mackenzie MD on October 08, 2017 at 5:15 Board Certified Radiologist. This report was verified electronically.
[2017-10-08 05:20] LABS: AUTOMATED NEUTROPHIL # 13.6 TH/MM3 (1.8-7.7); BASOPHIL % 0.1 % (0.0-2.0); HEMATOCRIT 36.9 % (39.0-51.0); HEMOGLOBIN 11.9 GM/DL (13.0-17.0); LYMPH % 4.1 % (9.0-44.0); LYMPHOCYTE # 0.6 TH/MM3 (1.0-4.8); MEAN CORPUSCULAR HEMOGLOBIN 29.1 PG (27.0-34.0); MEAN CORPUSCULAR HGB CONC 32.3 % (32.0-36.0); MONO % 2.5 % (0.0-8.0); MONOCYTE # 0.4 TH/MM3 (0-0.9); NEUT % 93.3 % (16.0-70.0); PLATELET COUNT 95 TH/MM3 (150-450); RED CELL DISTRIBUTION WIDTH 15.2 % (11.6-17.2); WHITE BLOOD COUNT 14.5 TH/MM3 (4.0-11.0)
[2017-10-08 05:52] LABS: ALBUMIN 2.4 GM/DL (3.4-5.0); CALCIUM 7.3 MG/DL (8.5-10.1); CALCIUM-PROTEIN CORRECTED 8.5 MG/DL (8.5-10.1); CREATININE 1.03 MG/DL (0.60-1.30); MAGNESIUM 1.9 MG/DL (1.5-2.5); PHOSPHORUS 2.8 MG/DL (2.5-4.9); TOTAL BILIRUBIN ADULT 0.4 MG/DL (0.2-1.0)
[2017-10-08] MEDS: LORazepam 2 MG/ML VIAL IV PUSH PRN ×2 (05:57→14:46)
[2017-10-08] MEDS: MIDAZOLAM 50 MG/NS 50 ML DRIP Premix IV PRN ×2 (06:02→10:54)
[2017-10-08 06:50] LABS: BANDS 11 % (0-6); LYMPHOCYTES 4 % (9-44); METAMYELOCYTES 1 % (0-1); MONOCYTES 1 % (0-8); NEUTROPHIL # MANUAL DIFF 13.8 TH/MM3 (1.8-7.7); POLYS (SEG NEUTROPHILS) 83 % (16-70)
[2017-10-08] MEDS: PROPOFOL 1000 MG/100 ML INJ 100 ML IV PRN ×3 (07:42→23:58)
[2017-10-08] MEDS: INSULIN NovoLIN REGULAR SUPPLEMENTAL SCALE SQ SCH ×3 (08:00→20:00)
[2017-10-08] MEDS: levETIRAcetam INJ 100 ML IV SCH ×2 (08:20→22:20)
[2017-10-08] MEDS: VANCOMYCIN 1,500 MG/NS 500 ML IV SCH ×4 (08:20→22:20)
[2017-10-08] MEDS: FAMOTIDINE 20 MG/2 ML VIAL IV PUSH SCH ×2 (08:21→22:21)
[2017-10-08] MEDS: ARTIFICIAL TEARS OPTH OINT 3.5 APPLIC/3.5 GM TUBO EACH EYE PRN (08:21)
[2017-10-08] MEDS: ARTIFICIAL TEARS OPTH SOLN 15 ML BTL EACH EYE SCH ×3 (08:22→17:25)
[2017-10-08] MEDS: HEPARIN SODIUM - SQ 10,000 UNITS/ML VIAL SQ SCH ×2 (08:22→21:00)
[2017-10-08] MEDS: CHLORHEXIDINE 0.12% (ORAL KIT) 15 ML CUP MT SCH ×2 (08:23→22:23)
--- NOTE | 2017-10-08 10:56 | HHI.CCPN ---
Subjective Remarks/Hospital Course 10/06: Elderly gentleman with unknown medical history, except known emphysema, brought in by paramedics post cardiac arrest. History is obtained entirely from the ED chart. Patient's name and age as well as comorbidities are unknown. There is no family available. Per ED chart patient called 911 for respiratory distress. On EMS arrival patient suffered a respiratory arrest. He was intubated in the field, downtime was less than 5 minutes. He was given 1 dose of epinephrine and CPR was done with spontaneous return of spontaneous circulation. On ED arrival patient was in PEA, therefore resuscitative efforts were continued and patient received an additional 2 rounds of CPR with 2 epinephrine being given. ROSC was obtained after approximately less than 5 minutes. [facility] now consulted for ICU admission. Patient was seen in ER, unresponsive, with questionable myoclonic versus seizure-like activity. He did not receive any sedation. 10/07: Patient continued to worsen over the night, with progressive hypercapnia and hypoxia, requiring pressure control ventilation with inverse ratio. Currently on a PEEP of 8 at 100% O2. He continues to require 24 hour EEG monitoring. Patient patient was noticed to have episode of seizure on EEG therefore he received Ativan and fosphenytoin with subsequent drop in blood pressure. He received 1 L fluid bolus and he was started on norepinephrine infusion. Currently on norepinephrine at 15 mcg/min. Morning chest x-ray reviewed, developing bilateral infiltrates and new right lower lobe infiltrate. Of note, patient was identified as being Mr. Arellano, recently admitted to our hospital for acute hypercapnic respiratory failure, acute COPD exacerbation, extubated last Sunday discharged on Sunday morning. 10/08 Patient remains intubated and sedated with Diprivan. Myoclonic jerks vs seizures noted this morning given Ativan 2mg x1 overnight. EEG yesterday showed artifact, no epileptiform activity. Afebrile. Objective Vital Signs Date Time Temp Pulse Resp B/P (MAP) Pulse Ox O2 Delivery O2 Flow Rate FiO2 10/08/17 10:00 107 10/08/17 08:00 97.7 26 104/58 (73) 100 106/52 (70) 10/08/17 08:00 60 10/06/17 12:56 Ventilator Intake and Output 10/08/17 10/08/17 10/09/17 08:00 16:00 00:00 Intake Total 1649 ml Output Total 850 ml Balance 799 ml Result Diagram: 10/08/17 0500 10/08/17 0500 Other Results Laboratory Tests Test 10/07/17 13:18 10/07/17 15:30 10/07/17 21:30 10/08/17 05:00 Blood Gas Puncture Site ART LINE Blood Gas Patient Temperature 98.6 Blood Gas HCO3 21 mmol/L Blood Gas Base Excess -5.1 mmol/L Blood Gas Oxygen Saturation 92 % Arterial Blood pH 7.27 Arterial Blood Partial Pressure CO2 46 mmHg Arterial Blood Partial Pressure O2 82 mmHg Arterial Blood Oxygen Content 17.2 Vol % Arterial Blood Carboxyhemoglobin 0.9 % Arterial Blood Methemoglobin 1.2 % Blood Gas Hemoglobin 13.2 G/DL Oxygen Delivery Device VENTILATOR Blood Gas Ventilator Setting Blood Gas Inspired Oxygen 100 % Blood Urea Nitrogen 25 MG/DL 25 MG/DL 26 MG/DL Creatinine 0.93 MG/DL 0.98 MG/DL 1.03 MG/DL Random Glucose 243 MG/DL 213 MG/DL 174 MG/DL Total Protein 5.3 GM/DL 5.0 GM/DL 5.0 GM/DL Calcium Level 7.1 MG/DL 7.3 MG/DL 7.3 MG/DL Magnesium Level 2.1 MG/DL 1.9 MG/DL 1.9 MG/DL Sodium Level 141 MEQ/L 141 MEQ/L 141 MEQ/L Potassium Level 4.4 MEQ/L 3.7 MEQ/L 3.5 MEQ/L Chloride Level 107 MEQ/L 108 MEQ/L 108 MEQ/L Carbon Dioxide Level 23.0 MEQ/L 23.3 MEQ/L 24.0 MEQ/L Anion Gap 11 MEQ/L 10 MEQ/L 9 MEQ/L Estimat Glomerular Filtration Rate 81 ML/MIN 76 ML/MIN 72 ML/MIN Protein Corrected Calcium 8.1 MG/DL 8.5 MG/DL 8.5 MG/DL Phenytoin (Dilantin) Level 7.7 MCG/ML White Blood Count 14.5 TH/MM3 Red Blood Count 4.10 MIL/MM3 Hemoglobin 11.9 GM/DL Hematocrit 36.9 % Mean Corpuscular Volume 90.0 FL Mean Corpuscular Hemoglobin 29.1 PG Mean Corpuscular Hemoglobin Concent 32.3 % Red Cell Distribution Width 15.2 % Platelet Count 95 TH/MM3 Mean Platelet Volume 9.0 FL Neutrophils (%) (Auto) 93.3 % Lymphocytes (%) (Auto) 4.1 % Monocytes (%) (Auto) 2.5 % Eosinophils (%) (Auto) 0.0 % Basophils (%) (Auto) 0.1 % Neutrophils # (Auto) 13.6 TH/MM3 Lymphocytes # (Auto) 0.6 TH/MM3 Monocytes # (Auto) 0.4 TH/MM3 Eosinophils # (Auto) 0.0 TH/MM3 Basophils # (Auto) 0.0 TH/MM3 CBC Comment AUTO DIFF Differential Total Cells Counted 100 Neutrophils % (Manual) 83 % Band Neutrophils % 11 % Lymphocytes % 4 % Monocytes % 1 % Neutrophils # (Manual) 13.8 TH/MM3 Metamyelocytes 1 % Differential Comment FINAL DIFF MANUAL Platelet Estimate LOW Platelet Morphology Comment NORMAL Red Cell Morphology Comment NORMAL Albumin 2.4 GM/DL Phosphorus Level 2.8 MG/DL Alkaline Phosphatase 49 U/L Aspartate Amino Transf (AST/SGOT) 35 U/L Alanine Aminotransferase (ALT/SGPT) 86 U/L Total Bilirubin 0.4 MG/DL Test 10/08/17 05:12 Blood Gas Puncture Site ART LINE Blood Gas Patient Temperature 98.6 Blood Gas HCO3 23 mmol/L Blood Gas Base Excess -1.1 mmol/L Blood Gas Oxygen Saturation 88 % Arterial Blood pH 7.39 Arterial Blood Partial Pressure CO2 39 mmHg Arterial Blood Partial Pressure O2 61 mmHg Arterial Blood Oxygen Content 14.6 Vol % Arterial Blood Carboxyhemoglobin 1.0 % Arterial Blood Methemoglobin 1.3 % Blood Gas Hemoglobin 11.7 G/DL Oxygen Delivery Device VENTILATOR Blood Gas Ventilator Setting PRVC/AC Blood Gas Inspired Oxygen 60 % Imaging Last Impressions Chest X-Ray 10/08/17 0600 Signed Impressions: Service Date/Time: Sunday, October 08, 2017 04:56 - CONCLUSION: 1. Basilar airspace consolidation, right greater than left with small effusions. Endotracheal tube and nasogastric tube in good position. Dar Mackenzie MD CT Angiography 10/06/17 1219 Signed Impressions: Service Date/Time: Friday, October 06, 2017 12:52 - CONCLUSION: No central pulmonary emboli Course interstitial changes both lungs, fibrosis versus atypical failure. Ayo Ibanez MD FACR Head CT 10/06/17 1216 Signed Impressions: Service Date/Time: Friday, October 06, 2017 12:38 - CONCLUSION: Moderate motion otherwise negative Ayo Ibanez MD FACR Objective Remarks General - elderly gentleman, intubated, unresponsive, ill-appearing HEENT - pupils are equal, non-reactive, sclerae are anicteric, neck is supple, no rigidity, no JVD, orally intubated CV - regular heart sound, no murmurs Chest - decreased air entry bilateral, no wheezes appreciated Abdomen - soft, appears non-tender, distended, BS present Skin - no rashes, no cyanosis Extremities - no edema, + peripheral pulses, no clubbing Neuro - limited, intubated, unresponsive, paralyzed A/P Assessment and Plan 1. Post PEA arrest 2 -total downtime approximately less than 10 minutes, undergoing hypothermia protocol 2. Acute on chronic hypoxic and hypercapnic respiratory failure 3. Acute encephalopathy with concern for anoxia 4. Status epilepticus 5. Circulatory shock 6. YOLIE 7. Aspiration pneumonia 8. Hypomagnesemia and hypocalcemia Plan Neuro: On Versed drip Diprivan infusion added for possible seizures For repeat CT brain this morning. Repeat EEG EEG 10/06: Artifact, no epileptiform activity. On Cerebyx 100mg IV Q8, Keppra Pulm: Continue with vent support keep sats >92% Bronchodilators, ICU vent bundle. PRVC, 550/26/0.9, PEEP:10. FIO2 75%, Wean down FIO2 as vanesa. On Solumederol 40mg Q8 On Flolan 30,000ng/ml at 5ml/hr CV: Monitor HR and BP keep MAP>65mmHg For 2D echo to eval LV function : Monitor renal function, I/O's, electrolytes replacement per protocol. Diurese with Lasix 40mg daily. D/c IVF GI: Start tube feeds- Glucerna 1.5 with goals rate 45ml/hr, On Pepcid for GI prophylaxis ID: Continue abx( Zosyn and Vanco)monitor for signs of infections ( Fever, WBC) Endo: SSI for glycemic control GI prophylaxis with Pepcid DVT prophylaxis with heparin and SCDs Palliative care eval CCT 30 mins Xu Raymundo MD October 08, 2017 10:56
[2017-10-08] MEDS: VASOPRESSIN 40 U/D5W 100 ML Hypotension, do NOT titrate (enter ordered rate) IV SCH ×2 (11:00)
[2017-10-08] MEDS: FUROSEMIDE 40 MG/4 ML VIAL IV PUSH SCH (12:05)
--- NOTE | 2017-10-08 12:08 | HHI.PR ---
Subjective Remarks myoclonic jerking seen at bedside Objective Vital Signs Date Time Temp Pulse Resp B/P (MAP) Pulse Ox O2 Delivery O2 Flow Rate FiO2 10/08/17 10:00 107 10/08/17 08:00 105 10/08/17 08:00 97.7 105 26 104/58 (73) 100 106/52 (70) 10/08/17 08:00 60 10/08/17 07:32 98 75 10/08/17 04:14 94 60 10/08/17 04:00 97.0 106 127/68 (87) 96 144/67 (92) 10/08/17 04:00 60 10/08/17 00:06 100 70 10/08/17 00:00 95.2 95 123/71 (88) 100 131/69 (89) 10/08/17 00:00 70 10/07/17 20:00 80 10/07/17 20:00 93.4 86 129/69 (89) 100 132/70 (90) 10/07/17 19:55 98 80 10/07/17 16:00 91.9 74 127/60 (82) 97 126/75 (92) 10/07/17 16:00 80 10/07/17 15:54 97 80 10/07/17 15:00 91.9 69 147/84 (105) 96 10/07/17 14:00 90 10/07/17 14:00 91.9 69 130/75 (93) 97 10/07/17 13:00 91.8 72 145/79 (101) 98 10/07/17 12:35 95 100 I/O 10/07/17 10/07/17 10/07/17 10/08/17 10/08/17 10/08/17 06:59 14:59 22:59 06:59 14:59 22:59 Intake Total 1504 ml 1680 ml 3991 ml 1649 ml Output Total 1900 ml 1100 ml 850 ml Balance -396 ml 1680 ml 2891 ml 799 ml Intake Oral 0 ml IV Total 1504 ml 1680 ml 3991 ml 1649 ml Output Urine Total 1750 ml 1100 ml 850 ml Gastric Drainage Total 150 ml 0 ml 0 ml # Bowel Movements 1 0 0 Result Diagram: 10/08/17 0500 10/08/17 0500 Objective Remarks intub/vent sedated pp pupils no gaze not overbreathing vent not following commands no w/d to pain Assessment and Plan Assessment and Plan anoxic encephalopathy w/myoclonus -keppra -cerebyx-give extra 500 cont 100mg tid,check level in am -repeat ct brain when able -palliative. -extremely poor prognosis. Kim Timmons MD October 08, 2017 12:08
[2017-10-08] MEDS ORDERED: FOSPHENYTOIN SODIUM 500 MG PE/10 ML VIAL IV ONE (13:00)
--- NOTE | 2017-10-08 13:12 | PD.CONS ---
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 Mackenzie MD CT Angiography 10/06/17 1219 Signed Impressions: Service Date/Time: Friday, October 06, 2017 12:52 - CONCLUSION: No central pulmonary emboli Course interstitial changes both lungs, fibrosis versus atypical failure. Ayo Ibanez MD FACR Head CT 10/06/17 1216 Signed Impressions: Service Date/Time: Friday, October 06, 2017 12:38 - CONCLUSION: Moderate motion otherwise negative Ayo Ibnaez MD FACR Procedures * 10/06/17 -endotracheal intubation * 10/06/17 -fiberoptic bronchoscopy * 10/06/17 -cooling catheter placement . Patient/Family Conference Present at Family Conference: No family at bedside. . Assessment and Plan Disease Oriented Problem List: (1) Acute on chronic respiratory failure with hypoxia and hypercapnia (2) Anoxic brain injury (3) Status epilepticus (4) Cardiogenic shock (5) Aspiration pneumonia (6) PEA (Pulseless electrical activity) Symptom Scale: (1) Dyspnea 0-10 Scale: Unable to quantify (2) Pain 0-10 Scale: Unable to quantify Pertinent Non-Medical Issues Psychosocial:As per previous palliative care consultation, patient was was born in [place] and graduated high school there, enlisted in the [employer] in 1970 and remaining there until 1997. He worked as a tank commander. He states he was never and had no children. Spiritual: No worship affiliation's. Legal: Living will completed. Ethical issues impacting care: Patient incapacitated for medical decision- making secondary to clinical condition. Living will requested not to contact his family under any circumstances. During prior hospitalization, patient declined to a point a decision maker voluntarily. If decisions need to be made and patient unable, he prefers a court appointed guardian/social work advantage. . Important Contacts Friend/landlord (not decision maker): Yudelka Butler . . Prognosis Mr. Arellano is a 67 y/o male with a medical history significant for COPD, diabetes mellitus, hypertension and obesity. Patient with multiple recent acute hospitalizations secondary to respiratory distress, COPD exacerbation. Patient currently intubated on mechanical ventilation status post PEA arrest x 2. Currently presented with myoclonic jerking at bedside concerning for anoxic brain injury. Overall prognosis appears very poor. . Code Status: Full Code Plan * CODE STATUS: Full code by default. * HEALTHCARE DECISION-MAKING: Patient lacks medical decision-making capacity secondary to clinical condition, anoxic brain injury. During prior hospitalization, patient completed living will specifically requesting to follow [place] statue to identify a licensed clinical director of social services to assist with decisions. In addition, he requested not to contact his family under any circumstances. Pending [employer] consultation. * GOALS OF CARE: Goals of care aggressive by default. Pending [employer] consultation as per patient's above-mentioned written directives. Living will completed during prior hospitalization 10/04/17, patient indicated that he would not want his life prolonged by artificial means if he had a terminal condition, end-stage condition, or was in a persistent vegetative state. He further requests it to be written that he does not want his family contacted under any circumstances. Requests he not be buried and desires his ashes to be spread at sea. He also expressed his desires for a Licensed Clinical Box Office Agent ( [employer]) to serve in this role should he be unable to make his own medical decisions. * SYMPTOMS: =Dyspnea: Acute on chronic respiratory failure, COPD, status post PEA arrest x2. Currently endotracheally intubated on mechanical ventilation. [place] following. = Seizure activity: Ongoing EEG at the time of my visit. Neurology following for anoxic encephalopathy, myoclonic jerking versus seizure activity. Patient currently on Keppra and Cerebyx. Ongoing propofol and Versed drips. = Pain: Likely secondary to endotracheal intubation, lines, bedrest. Fentanyl drip ordered, however, on hold secondary to hypertension. * Case discussed with residential case manager and bedside RN. * Palliative care will continue to follow up for further clarification of goals of care as patient's clinical course continues to evolve. . Time Spent Total Floor Time (mins): 50 (Total time to include review and summarization of available medical records to include multiple prior hospitalizations, physical exam, case discussion with residential case manager and bedside RN.) >50% Counseling/Coord of Care: Yes Thank you for the opportunity to participate in the care of Mr. Arellano. Attestation To help prompt me to consider important information that might be impacting today's encounter and assessment, information from prior notes written by myself or my colleagues may have been "brought forward" into today's note. My signature on this note, however, is an attestation that I personally performed the exam, history, and/or decision-making noted today, and, unless otherwise indicated, the interactions with patient, family, and staff as well as the review of records all occurred today. I also attest that the listed assessment and stated plan reflect my best clinical judgment today based on the combination of historical information, prior notes, and today's exam/ interactions. When time spent is documented, it refers only to time spent today by the signer, or if indicated, combined time spent today by collaborating physician/nurse practitioner. Avis Frey October 08, 2017 13:12
--- NOTE | 2017-10-08 21:00 | MG ---
cc: Lewis Her MD EEG RECORD NUMBER: [id number] DATE OF : 1950 DESCRIPTION OF RECORD: Frequent generalized sharp discharges occurring, approximately 1 Hz 50-100 microvolts. Interictal suppressed delta sharp waves followed by theta and beta buzz. Patient noted to be twitching. Single lead EKG with artifact. INTERPRETATION: Continuous, sharp discharges occurring in a generalized fashion with occasionally variable frequency with interictal suppression suggestive of severe generalized cortical irritability, encephalopathy. Clinical correlation. Lewis Her MD MG/SB , 08:07 PM , 08:59 PM
[2017-10-09] VITALS (20 sets, daily range): BP systolic 82–139; BP diastolic 47–61; PULSE 101–122; RESP 26; TEMP 98.7–99.7; O2SAT 93–100
[2017-10-09] MEDS: INSULIN NovoLIN REGULAR SUPPLEMENTAL SCALE SQ SCH ×4 (02:00→20:00)
[2017-10-09] MEDS: EPOPROSTENOL NEB SOLUTION 50 NG/KG/MIN 100 ML NEB SCH ×6 (03:12→21:32)
[2017-10-09] MEDS: CHLORHEXIDINE GLUCONATE 2 % 1 PACK (2 CLOTHS) TOP SCH (03:13)
[2017-10-09] MEDS: RESP: ALBUTEROL 2.5 MG/IPRATROPIUM 0.5 MG NEB (SCH) INH ×4 (03:43→20:01)
[2017-10-09] MEDS: PIPERACIL-TAZO 3.375 GM PREMIX 50 ML IV SCH ×4 (04:52→21:35)
[2017-10-09] MEDS: FOSPHENYTOIN SODIUM 100 MG PE/2 ML VIAL IV SCH ×3 (04:52→21:34)
[2017-10-09] MEDS: methylPREDNISolone SOD SUCC 40 MG/1 ML VIAL IV PUSH SCH ×4 (04:53→23:27)
[2017-10-09] MEDS: MIDAZOLAM 50 MG/NS 50 ML DRIP Premix IV PRN (04:54)
[2017-10-09 05:47] LABS: AUTOMATED NEUTROPHIL # 12.6 TH/MM3 (1.8-7.7); BASOPHIL % 0.1 % (0.0-2.0); HEMATOCRIT 33.4 % (39.0-51.0); HEMOGLOBIN 10.9 GM/DL (13.0-17.0); LYMPH % 2.5 % (9.0-44.0); LYMPHOCYTE # 0.3 TH/MM3 (1.0-4.8); MEAN CELL VOLUME 90.2 FL (80.0-100.0); MEAN CORPUSCULAR HEMOGLOBIN 29.4 PG (27.0-34.0); MEAN CORPUSCULAR HGB CONC 32.6 % (32.0-36.0); MEAN PLATELET VOLUME 10.1 FL (7.0-11.0); MONO % 3.8 % (0.0-8.0); MONOCYTE # 0.5 TH/MM3 (0-0.9); NEUT % 93.6 % (16.0-70.0); PLATELET COUNT 104 TH/MM3 (150-450); WHITE BLOOD COUNT 13.4 TH/MM3 (4.0-11.0)
[2017-10-09 06:08] LABS: ALBUMIN 2.3 GM/DL (3.4-5.0); ALT (GPT) 62 U/L (12-78); AST (GOT) 36 U/L (15-37); BICARBONATE 26.6 MEQ/L (21.0-32.0); BLOOD UREA NITROGEN 34 MG/DL (7-18); CALCIUM 7.5 MG/DL (8.5-10.1); CHLORIDE 108 MEQ/L (98-107); CREATININE 1.42 MG/DL (0.60-1.30); GLOMERULAR FILTRATION RATE 50 ML/MIN (>89); GLUCOSE,RANDOM 199 MG/DL (74-106); MAGNESIUM 2.4 MG/DL (1.5-2.5); PHOSPHORUS 2.5 MG/DL (2.5-4.9); SODIUM (NA) 142 MEQ/L (136-145)
[2017-10-09 06:10] LABS: ALKALINE PHOSPHATASE 47 U/L (45-117); PHENYTOIN (DILANTIN) 9.7 MCG/ML (10.0-20.0); TOTAL BILIRUBIN ADULT 0.3 MG/DL (0.2-1.0); TOTAL PROTEIN 5.3 GM/DL (6.4-8.2)
[2017-10-09] MEDS: VANCOMYCIN 1,500 MG/NS 500 ML IV SCH ×4 (07:18→08:24)
[2017-10-09] MEDS: ARTIFICIAL TEARS OPTH SOLN 15 ML BTL EACH EYE SCH ×3 (07:18→17:24)
[2017-10-09] MEDS: levETIRAcetam INJ 100 ML IV SCH ×2 (07:18→21:34)
[2017-10-09] MEDS: FUROSEMIDE 40 MG/4 ML VIAL IV PUSH SCH (07:18)
[2017-10-09] MEDS: HEPARIN SODIUM - SQ 10,000 UNITS/ML VIAL SQ SCH ×2 (07:19→21:00)
[2017-10-09] MEDS: FAMOTIDINE 20 MG/2 ML VIAL IV PUSH SCH ×2 (07:19→21:34)
[2017-10-09] MEDS: CHLORHEXIDINE 0.12% (ORAL KIT) 15 ML CUP MT SCH ×2 (07:19→20:00)
[2017-10-09] MEDS ORDERED: PHARMACY ORDERED LAB ONE (07:45)
--- NOTE | 2017-10-09 08:17 | HHI.CCPN ---
Subjective Remarks/Hospital Course 10/06: Elderly gentleman with unknown medical history, except known emphysema, brought in by paramedics post cardiac arrest. History is obtained entirely from the ED chart. Patient's name and age as well as comorbidities are unknown. There is no family available. Per ED chart patient called 911 for respiratory distress. On EMS arrival patient suffered a respiratory arrest. He was intubated in the field, downtime was less than 5 minutes. He was given 1 dose of epinephrine and CPR was done with spontaneous return of spontaneous circulation. On ED arrival patient was in PEA, therefore resuscitative efforts were continued and patient received an additional 2 rounds of CPR with 2 epinephrine being given. ROSC was obtained after approximately less than 5 minutes. [facility] now consulted for ICU admission. Patient was seen in ER, unresponsive, with questionable myoclonic versus seizure-like activity. He did not receive any sedation. 10/07: Patient continued to worsen over the night, with progressive hypercapnia and hypoxia, requiring pressure control ventilation with inverse ratio. Currently on a PEEP of 8 at 100% O2. He continues to require 24 hour EEG monitoring. Patient patient was noticed to have episode of seizure on EEG therefore he received Ativan and fosphenytoin with subsequent drop in blood pressure. He received 1 L fluid bolus and he was started on norepinephrine infusion. Currently on norepinephrine at 15 mcg/min. Morning chest x-ray reviewed, developing bilateral infiltrates and new right lower lobe infiltrate. Of note, patient was identified as being Mr. Arelalno, recently admitted to our hospital for acute hypercapnic respiratory failure, acute COPD exacerbation, extubated last Sunday discharged on Sunday morning. 10/08 Patient remains intubated and sedated with Diprivan. Myoclonic jerks vs seizures noted this morning given Ativan 2mg x1 overnight. EEG yesterday showed artifact, no epileptiform activity. Afebrile. 10/09 Patient remains sedated with Diprivan, Versed and intubated. Afebrile. On continuous EEG monitoring. Objective Vital Signs Date Time Temp Pulse Resp B/P (MAP) Pulse Ox O2 Delivery O2 Flow Rate FiO2 10/09/17 07:34 97 50 10/09/17 04:00 99.0 104 99/55 (70) 106/50 (68) 10/08/17 16:00 26 10/06/17 12:56 Ventilator Intake and Output 5/10/09/17 10/09/17 07:59 15:59 23:59 Intake Total 718 ml Output Total 950 ml Balance -232 ml Result Diagram: 10/09/17 0500 10/09/17 0500 Other Results Laboratory Tests Test 10/09/17 04:15 10/09/17 05:00 Blood Gas Puncture Site ART LINE Blood Gas Patient Temperature 98.6 Blood Gas HCO3 24 mmol/L Blood Gas Base Excess 0.2 mmol/L Blood Gas Oxygen Saturation 95 % Arterial Blood pH 7.41 Arterial Blood Partial Pressure CO2 39 mmHg Arterial Blood Partial Pressure O2 92 mmHg Arterial Blood Oxygen Content 14.1 Vol % Arterial Blood Carboxyhemoglobin 0.9 % Arterial Blood Methemoglobin 1.5 % Blood Gas Hemoglobin 10.5 G/DL Oxygen Delivery Device VENTILATOR Blood Gas Ventilator Setting PRVC/AC Blood Gas Inspired Oxygen 75 % White Blood Count 13.4 TH/MM3 Red Blood Count 3.70 MIL/MM3 Hemoglobin 10.9 GM/DL Hematocrit 33.4 % Mean Corpuscular Volume 90.2 FL Mean Corpuscular Hemoglobin 29.4 PG Mean Corpuscular Hemoglobin Concent 32.6 % Red Cell Distribution Width 15.0 % Platelet Count 104 TH/MM3 Mean Platelet Volume 10.1 FL Neutrophils (%) (Auto) 93.6 % Lymphocytes (%) (Auto) 2.5 % Monocytes (%) (Auto) 3.8 % Eosinophils (%) (Auto) 0.0 % Basophils (%) (Auto) 0.1 % Neutrophils # (Auto) 12.6 TH/MM3 Lymphocytes # (Auto) 0.3 TH/MM3 Monocytes # (Auto) 0.5 TH/MM3 Eosinophils # (Auto) 0.0 TH/MM3 Basophils # (Auto) 0.0 TH/MM3 CBC Comment DIFF FINAL Differential Comment Blood Urea Nitrogen 34 MG/DL Creatinine 1.42 MG/DL Random Glucose 199 MG/DL Total Protein 5.3 GM/DL Albumin 2.3 GM/DL Calcium Level 7.5 MG/DL Phosphorus Level 2.5 MG/DL Magnesium Level 2.4 MG/DL Alkaline Phosphatase 47 U/L Aspartate Amino Transf (AST/SGOT) 36 U/L Alanine Aminotransferase (ALT/SGPT) 62 U/L Total Bilirubin 0.3 MG/DL Sodium Level 142 MEQ/L Potassium Level 3.6 MEQ/L Chloride Level 108 MEQ/L Carbon Dioxide Level 26.6 MEQ/L Anion Gap 7 MEQ/L Estimat Glomerular Filtration Rate 50 ML/MIN Phenytoin (Dilantin) Level 9.7 MCG/ML Imaging Last Impressions Chest X-Ray 10/08/17 0600 Signed Impressions: Service Date/Time: Sunday, October 08, 2017 04:56 - CONCLUSION: 1. Basilar airspace consolidation, right greater than left with small effusions. Endotracheal tube and nasogastric tube in good position. Dar Mackenzie MD CT Angiography 10/06/17 1219 Signed Impressions: Service Date/Time: Friday, October 06, 2017 12:52 - CONCLUSION: No central pulmonary emboli Course interstitial changes both lungs, fibrosis versus atypical failure. Ayo Ibanez MD FACR Head CT 10/06/17 1216 Signed Impressions: Service Date/Time: Friday, October 06, 2017 12:38 - CONCLUSION: Moderate motion otherwise negative Ayo Ibanez MD FACR Objective Remarks General - elderly gentleman, intubated, unresponsive, ill-appearing HEENT - pupils are equal, non-reactive, sclerae are anicteric, neck is supple, no rigidity, no JVD, orally intubated CV - regular heart sound, no murmurs Chest - decreased air entry bilateral, no wheezes appreciated Abdomen - soft, appears non-tender, distended, BS present Skin - no rashes, no cyanosis Extremities - no edema, + peripheral pulses, no clubbing Neuro - limited, intubated, unresponsive, paralyzed A/P Assessment and Plan 1. Post PEA arrest 2 -total downtime approximately less than 10 minutes, undergoing hypothermia protocol 2. Acute on chronic hypoxic and hypercapnic respiratory failure 3. Acute encephalopathy with concern for anoxia 4. Status epilepticus 5. Circulatory shock 6. YOLIE 7. Aspiration pneumonia 8. Hypomagnesemia and hypocalcemia Plan Neuro: On Versed and Diprivan infusion for sedation. For repeat CT brain today. On continuous EEG monitoring EEG 10/06: Artifact, no epileptiform activity. On Cerebyx 100mg IV Q8, Keppra Pulm: Continue with vent support keep sats >92% Bronchodilators, ICU vent bundle. PRVC, 550/26/0.9, PEEP:10. FIO2 75%, Wean down FIO2 as vanesa. On Solumederol 40mg Q8 On Flolan 30,000ng/ml at 5ml/hr CV: Monitor HR and BP keep MAP>65mmHg For 2D echo to eval LV function : Monitor renal function, I/O's, electrolytes replacement per protocol. d/c Lasix Cr:1.42 from 1.03, UOP: 950ml overnight. GI: On tube feeds- Glucerna 1.5 @ 45ml/hr, On Pepcid for GI prophylaxis ID: Continue abx( Zosyn and Vanco)monitor for signs of infections ( Fever, WBC) Endo: SSI for glycemic control GI prophylaxis with Pepcid DVT prophylaxis with heparin and SCDs Palliative care is following CCT 30 mins Xu Raymundo MD October 09, 2017 08:17
[2017-10-09] MEDS: PROPOFOL 1000 MG/100 ML INJ 100 ML IV PRN ×4 (09:15→23:21)
--- NOTE | 2017-10-09 11:35 | ECHRPT ---
Indication: CHRONIC PULM HEART DISEASE CONCLUSIONS The left ventricle is not well visualized. Normal left ventricular size. Wall thickness is normal. There was limited left ventricular wall motion assessment due to poor endocardial visualization. The left ventricular systolic function is [id number] reduced with an estimated ejection fra ction in the range of 35-40%. The right ventricle is mildly dilated. The right ventricular systoilc function is normal. The pulmonary valve is not well visualized. BP: / HR: Rhythm: MEASUREMENTS (Male / Female) Normal Values Technical Quality: 2D ECHO LV Diastolic Diameter PLAX 4.3 cm 4.2 - 5.9 / 3.9 - 5.3 cm LV Systolic Diameter PLAX 3.5 cm IVS Diastolic Thickness 0.8 cm 0.6 - 1.0 / 0.6 - 0.9 cm LVPW Diastolic Thickness 0.7 cm 0.6 - 1.0 / 0.6 - 0.9 cm LV Relative Wall Thickness 0.4 DOPPLER Mitral E Point Velocity 78.5 cm/s Mitral A Point Velocity 87.9 cm/s Mitral E to A Ratio 0.9 TR Peak Velocity 179.0 cm/s TR Peak Gradient 12.8 mmHg FINDINGS LEFT VENTRICLE The left ventricle is not well visualized. Normal left ventricular size. Wall thickness is normal. There was limited left ventricular wall motion assessment due to poor endocardial visualization. The left ventricular systolic function is [id number] reduced with an estimated ejection fra ction in the range of 35-40%. RIGHT VENTRICLE The right ventricle is mildly dilated. The right ventricular systoilc function is normal. LEFT ATRIUM The left atrial size is normal. RIGHT ATRIUM The right atrial size is normal. ATRIAL SEPTUM Normal atrial septal thickness without atrial level shunting by limited color doppler interrogation. AORTA The aortic root and proximal ascending aorta are normal in size on limited imaging. MITRAL VALVE Structurally normal mitral valve. No mitral valve stenosis or regurgitation. AORTIC VALVE Trileaflet aortic valve. No aortic valve stenosis or regurgitation. TRICUSPID VALVE Structurally normal tricuspid valve. No tricuspid valve stenosis or regurgitation. PULMONARY VALVE The pulmonary valve is not well visualized. VESSELS The inferior vena cava is normal in size. PERICARDIUM No pericardial effusion. Haseeb Massey MD, FACC (Electronically Signed) Final Date:09 Oct 2017 11:33
[2017-10-09] MEDS ORDERED: VANCOMYCIN INJ 2,000 MG in SODIUM CHLORID 0.9% 500 ML INJ 500 ML IV ONE (14:00)
--- NOTE | 2017-10-09 16:30 | HHI.HCPN ---
Reason for visit a. To assist with evaluation and management of symptoms including: dyspnea. b. To assist medical decision maker(s) with: better understanding of current medical conditions; weighing benefits/burdens of medical treatment options; making medical treatment decisions. . Subjective/Interval History Care follow-up for further clarifications of goals of care. Patient seen in medical ICU. Remains endotracheally intubated on mechanical ventilation. No myoclonic activity noted, remains on propofol and Versed drip. EEG 10/08 revealing severe generalized vertical irritability, encephalopathy. Currently on phenobarbital, Keppra ATC and Ativan as needed for seizure activity. 2D echo today revealing EF of 35-40%, mildly dilated right ventricle with normal systolic function. Febrile, tachycardic with heart rate in the 110s-120s during my visit, SBP 80's to 90's. Pending repeat CT of brain. Discussed with bedside RN Bryanna and Dr. Raymundo. . Family/friend interactions No family. . Advance Directives Living Will: Copy in medical record Health Care Surrogate: Never completed Durable Power of Parent Partner: Never completed Advance Directive Specifics Health Care Surrogate(s): Living will completed 10/04/17. Patient indicated wishing to "follow [place] statue to identify a licensed clinical social welfare research worker to assist with decisions". In addition, patient stating "I do not want my family contacted under any circumstances. I do not want to be buried". . Documented care wishes: Living will with standard verbiage as it pertains to terminal condition, end- stage condition or persistent vegetative state. . Significant change in goals: Goals remain aggressive by default. . Objective Vital Signs Date Time Temp Pulse Resp B/P (MAP) Pulse Ox O2 Delivery O2 Flow Rate FiO2 10/09/17 15:30 93 50 10/09/17 15:00 114 10/09/17 14:00 117 10/09/17 13:00 119 10/09/17 12:00 120 10/09/17 12:00 50 10/09/17 12:00 99.0 120 98/54 (69) 95 108/53 (71) 10/09/17 11:00 100.4 122 131/59 (83) 96 10/09/17 11:00 122 10/09/17 10:00 118 10/09/17 10:00 99.9 118 139/61 (87) 97 10/09/17 09:00 99.5 110 121/56 (77) 96 10/09/17 09:00 110 10/09/17 08:00 50 10/09/17 08:00 104 10/09/17 08:00 98.7 104 26 106/59 (75) 96 115/51 (72) 10/09/17 07:34 97 50 10/09/17 07:00 99.1 104 107/49 (68) 99 10/09/17 07:00 104 10/09/17 04:06 100 75 10/09/17 04:00 75 10/09/17 04:00 99.0 104 99/55 (70) 99 106/50 (68) 10/09/17 00:20 98 75 10/09/17 00:00 75 10/09/17 00:00 98.4 101 99/58 (72) 100 104/51 (68) 10/09/17 00:00 98.4 101 99/58 (72) 100 104/51 (68) 10/08/17 20:04 99 75 10/08/17 20:00 75 10/08/17 20:00 99.0 101 95/53 (67) 98 92/50 (64) 10/08/17 18:00 104 10/08/17 17:00 99.0 106 97/51 (66) 10/08/17 17:00 106 Intake & Output 10/09/17 10/09/17 07:00 19:00 Intake Total 968 ml 200 ml Output Total 950 ml Balance 18 ml 200 ml Intake Oral 0 ml IV Total 968 ml 200 ml Output Urine Total 950 ml Gastric Drainage Total 0 ml # Bowel Movements 0 Physical Exam CONSTITUTIONAL/GENERAL: This is an adequately nourished patient, in no apparent distress. TUBES/LINES/DRAINS: ETT, OG, PIV's, SCDs, Banerjee catheter, bilateral soft wrist restraints. SKIN: No jaundice, rashes, or lesions. Ecchymoses on upper extremities. No wounds seen anteriorly. Skin temperature appropriate. Not diaphoretic. HEAD: Atraumatic. Normocephalic. EYES: Pupils equal and round and reactive. No scleral icterus. No injection or drainage. ENT: Hearing grossly normal. Nose without bleeding or purulent drainage. Moist oral mucosa. NECK: Trachea midline. Supple, nontender. CARDIOVASCULAR: Tachycardic with heart rate in the low 110s-120s. Regular rhythm without murmurs. RESPIRATORY/CHEST: Symmetric, unlabored respirations. Clear to auscultation. Endotracheally intubated on mechanical ventilation. GASTROINTESTINAL: Abdomen soft, large. Bowel sounds present. GENITOURINARY: Without palpable bladder distension. Banerjee catheter in place. MUSCULOSKELETAL: Extremities without clubbing, cyanosis, or edema. No mottling or clubbing. NEUROLOGICAL: Unresponsive to verbal or tactile stimuli. PSYCHIATRIC: Unable to assess given medical condition, on ventilator support. . Diagnostic Tests Laboratory Laboratory Tests Test 10/06/17 17:30 10/06/17 18:40 10/06/17 19:25 10/06/17 21:34 Blood Gas Puncture Site ART LINE ART LINE ART LINE Blood Gas Patient Temperature 98.6 98.6 98.6 Blood Gas HCO3 28 mmol/L (22-26) 29 mmol/L (22-26) 27 mmol/L (22-26) Blood Gas Base Excess 0.6 mmol/L (-2-2) 1.2 mmol/L (-2-2) 0.9 mmol/L (-2-2) Blood Gas Oxygen Saturation 88 % (90-100) 96 % (90-100) 89 % (90-100) Arterial Blood pH 7.19 (7.380-7.420) 7.19 (7.380-7.420) 7.27 (7.380-7.420) Arterial Blood Partial Pressure CO2 77 mmHg (38-42) 79 mmHg (38-42) 61 mmHg (38-42) Arterial Blood Partial Pressure O2 71 mmHg (61-120) 124 mmHg (61-120) 70 mmHg (61-120) Arterial Blood Oxygen Content 16.8 Vol % (12.0-20.0) 19.1 Vol % (12.0-20.0) 18.3 Vol % (12.0-20.0) Arterial Blood Carboxyhemoglobin 0.8 % (0-4) 0.7 % (0-4) 0.9 % (0-4) Arterial Blood Methemoglobin 1.3 % (0-2) 1.3 % (0-2) 1.4 % (0-2) Blood Gas Hemoglobin 13.7 G/DL (12.0-16.0) 14.2 G/DL (12.0-16.0) 14.5 G/DL (12.0-16.0) Oxygen Delivery Device VENTILATOR VENTILATOR VENTILATOR Blood Gas Ventilator Setting PRVC/AC450/32 PRVC/AC PC/AC Blood Gas Inspired Oxygen 100 % 100 % 70 % Nasal Screen MRSA (PCR) MRSA NOT DETECTED (NOT Test 10/07/17 03:40 10/07/17 05:45 10/07/17 09:30 10/07/17 09:32 White Blood Count 27.6 TH/MM3 (4.0-11.0) Red Blood Count 5.15 MIL/MM3 (4.50-5.90) Hemoglobin 15.2 GM/DL (13.0-17.0) Hematocrit 46.8 % (39.0-51.0) Mean Corpuscular Volume 90.8 FL (80.0-100.0) Mean Corpuscular Hemoglobin 29.4 PG (27.0-34.0) Mean Corpuscular Hemoglobin Concent 32.4 % (32.0-36.0) Red Cell Distribution Width 15.3 % (11.6-17.2) Platelet Count 225 TH/MM3 (150-450) Mean Platelet Volume 8.5 FL (7.0-11.0) Neutrophils (%) (Auto) 91.9 % (16.0-70.0) Lymphocytes (%) (Auto) 3.8 % (9.0-44.0) Monocytes (%) (Auto) 4.1 % (0.0-8.0) Eosinophils (%) (Auto) 0.1 % (0.0-4.0) Basophils (%) (Auto) 0.1 % (0.0-2.0) Neutrophils # (Auto) 25.4 TH/MM3 (1.8-7.7) Lymphocytes # (Auto) 1.0 TH/MM3 (1.0-4.8) Monocytes # (Auto) 1.1 TH/MM3 (0-0.9) Eosinophils # (Auto) 0.0 TH/MM3 (0-0.4) Basophils # (Auto) 0.0 TH/MM3 (0-0.2) CBC Comment AUTO DIFF Differential Total Cells Counted 100 Neutrophils % (Manual) 74 % (16-70) Band Neutrophils % 19 % (0-6) Lymphocytes % 1 % (9-44) Monocytes % 4 % (0-8) Neutrophils # (Manual) 26.2 TH/MM3 (1.8-7.7) Myelocytes 2 % (0-0) Differential Comment FINAL DIFF MANUAL Platelet Estimate NORMAL (NORMAL) Platelet Morphology Comment NORMAL (NORMAL) Prothrombin Time 10.9 SEC (9.8-11.6) Prothromb Time International Ratio 1.1 RATIO Blood Urea Nitrogen 24 MG/DL (7-18) 26 MG/DL (7-18) Creatinine 0.88 MG/DL (0.60-1.30) 1.01 MG/DL (0.60-1.30) Random Glucose 201 MG/DL (74-106) 199 MG/DL (74-106) Total Protein 5.9 GM/DL (6.4-8.2) 4.8 GM/DL (6.4-8.2) Albumin 2.6 GM/DL (3.4-5.0) Calcium Level 7.0 MG/DL (8.5-10.1) 6.5 MG/DL (8.5-10.1) Phosphorus Level 3.5 MG/DL (2.5-4.9) Magnesium Level 1.8 MG/DL (1.5-2.5) 1.7 MG/DL (1.5-2.5) Alkaline Phosphatase 72 U/L (45-117) Aspartate Amino Transf (AST/SGOT) 82 U/L (15-37) Alanine Aminotransferase (ALT/SGPT) 167 U/L (12-78) Total Bilirubin 0.7 MG/DL (0.2-1.0) Sodium Level 142 MEQ/L (136-145) 144 MEQ/L (136-145) Potassium Level 3.9 MEQ/L (3.5-5.1) 3.9 MEQ/L (3.5-5.1) Chloride Level 106 MEQ/L (98-107) 108 MEQ/L (98-107) Carbon Dioxide Level 27.0 MEQ/L (21.0-32.0) 25.7 MEQ/L (21.0-32.0) Anion Gap 9 MEQ/L (5-15) 10 MEQ/L (5-15) Estimat Glomerular Filtration Rate 75 ML/MIN (>89) 73 ML/MIN (>89) Lactic Acid Level 1.4 mmol/L (0.4-2.0) Protein Corrected Calcium 7.6 MG/DL (8.5-10.1) 7.6 MG/DL (8.5-10.1) Blood Gas Puncture Site ART LINE ART LINE Blood Gas Patient Temperature 98.6 98.6 Blood Gas HCO3 24 mmol/L (22-26) 22 mmol/L (22-26) Blood Gas Base Excess -1.4 mmol/L (-2-2) -4.4 mmol/L (-2-2) Blood Gas Oxygen Saturation 89 % (90-100) 90 % (90-100) Arterial Blood pH 7.29 (7.380-7.420) 7.25 (7.380-7.420) Arterial Blood Partial Pressure CO2 52 mmHg (38-42) 51 mmHg (38-42) Arterial Blood Partial Pressure O2 68 mmHg (61-120) 75 mmHg (61-120) Arterial Blood Oxygen Content 19.1 Vol % (12.0-20.0) 17.4 Vol % (12.0-20.0) Arterial Blood Carboxyhemoglobin 0.9 % (0-4) 0.9 % (0-4) Arterial Blood Methemoglobin 1.3 % (0-2) 1.3 % (0-2) Blood Gas Hemoglobin 15.2 G/DL (12.0-16.0) 13.8 G/DL (12.0-16.0) Oxygen Delivery Device VENTILATOR VENTILATOR Blood Gas Ventilator Setting PC/AC Blood Gas Inspired Oxygen 100 % 100 % Test 10/07/17 13:18 10/07/17 15:30 10/07/17 21:30 10/08/17 05:00 Blood Gas Puncture Site ART LINE Blood Gas Patient Temperature 98.6 Blood Gas HCO3 21 mmol/L (22-26) Blood Gas Base Excess -5.1 mmol/L (-2-2) Blood Gas Oxygen Saturation 92 % (90-100) Arterial Blood pH 7.27 (7.380-7.420) Arterial Blood Partial Pressure CO2 46 mmHg (38-42) Arterial Blood Partial Pressure O2 82 mmHg (61-120) Arterial Blood Oxygen Content 17.2 Vol % (12.0-20.0) Arterial Blood Carboxyhemoglobin 0.9 % (0-4) Arterial Blood Methemoglobin 1.2 % (0-2) Blood Gas Hemoglobin 13.2 G/DL (12.0-16.0) Oxygen Delivery Device VENTILATOR Blood Gas Ventilator Setting Blood Gas Inspired Oxygen 100 % Blood Urea Nitrogen 25 MG/DL (7-18) 25 MG/DL (7-18) 26 MG/DL (7-18) Creatinine 0.93 MG/DL (0.60-1.30) 0.98 MG/DL (0.60-1.30) 1.03 MG/DL (0.60-1.30) Random Glucose 243 MG/DL (74-106) 213 MG/DL (74-106) 174 MG/DL (74-106) Total Protein 5.3 GM/DL (6.4-8.2) 5.0 GM/DL (6.4-8.2) 5.0 GM/DL (6.4-8.2) Calcium Level 7.1 MG/DL (8.5-10.1) 7.3 MG/DL (8.5-10.1) 7.3 MG/DL (8.5-10.1) Magnesium Level 2.1 MG/DL (1.5-2.5) 1.9 MG/DL (1.5-2.5) 1.9 MG/DL (1.5-2.5) Sodium Level 141 MEQ/L (136-145) 141 MEQ/L (136-145) 141 MEQ/L (136-145) Potassium Level 4.4 MEQ/L (3.5-5.1) 3.7 MEQ/L (3.5-5.1) 3.5 MEQ/L (3.5-5.1) Chloride Level 107 MEQ/L (98-107) 108 MEQ/L (98-107) 108 MEQ/L (98-107) Carbon Dioxide Level 23.0 MEQ/L (21.0-32.0) 23.3 MEQ/L (21.0-32.0) 24.0 MEQ/L (21.0-32.0) Anion Gap 11 MEQ/L (5-15) 10 MEQ/L (5-15) 9 MEQ/L (5-15) Estimat Glomerular Filtration Rate 81 ML/MIN (>89) 76 ML/MIN (>89) 72 ML/MIN (>89) Protein Corrected Calcium 8.1 MG/DL (8.5-10.1) 8.5 MG/DL (8.5-10.1) 8.5 MG/DL (8.5-10.1) Phenytoin (Dilantin) Level 7.7 MCG/ML (10.0-20.0) White Blood Count 14.5 TH/MM3 (4.0-11.0) Red Blood Count 4.10 MIL/MM3 (4.50-5.90) Hemoglobin 11.9 GM/DL (13.0-17.0) Hematocrit 36.9 % (39.0-51.0) Mean Corpuscular Volume 90.0 FL (80.0-100.0) Mean Corpuscular Hemoglobin 29.1 PG (27.0-34.0) Mean Corpuscular Hemoglobin Concent 32.3 % (32.0-36.0) Red Cell Distribution Width 15.2 % (11.6-17.2) Platelet Count 95 TH/MM3 (150-450) Mean Platelet Volume 9.0 FL (7.0-11.0) Neutrophils (%) (Auto) 93.3 % (16.0-70.0) Lymphocytes (%) (Auto) 4.1 % (9.0-44.0) Monocytes (%) (Auto) 2.5 % (0.0-8.0) Eosinophils (%) (Auto) 0.0 % (0.0-4.0) Basophils (%) (Auto) 0.1 % (0.0-2.0) Neutrophils # (Auto) 13.6 TH/MM3 (1.8-7.7) Lymphocytes # (Auto) 0.6 TH/MM3 (1.0-4.8) Monocytes # (Auto) 0.4 TH/MM3 (0-0.9) Eosinophils # (Auto) 0.0 TH/MM3 (0-0.4) Basophils # (Auto) 0.0 TH/MM3 (0-0.2) CBC Comment AUTO DIFF Differential Total Cells Counted 100 Neutrophils % (Manual) 83 % (16-70) Band Neutrophils % 11 % (0-6) Lymphocytes % 4 % (9-44) Monocytes % 1 % (0-8) Neutrophils # (Manual) 13.8 TH/MM3 (1.8-7.7) Metamyelocytes 1 % (0-1) Differential Comment FINAL DIFF MANUAL Platelet Estimate LOW (NORMAL) Platelet Morphology Comment NORMAL (NORMAL) Red Cell Morphology Comment NORMAL (NORMAL) Albumin 2.4 GM/DL (3.4-5.0) Phosphorus Level 2.8 MG/DL (2.5-4.9) Alkaline Phosphatase 49 U/L (45-117) Aspartate Amino Transf (AST/SGOT) 35 U/L (15-37) Alanine Aminotransferase (ALT/SGPT) 86 U/L (12-78) Total Bilirubin 0.4 MG/DL (0.2-1.0) Test 10/08/17 05:12 10/09/17 04:15 10/09/17 05:00 10/09/17 08:11 Blood Gas Puncture Site ART LINE ART LINE Blood Gas Patient Temperature 98.6 98.6 Blood Gas HCO3 23 mmol/L (22-26) 24 mmol/L (22-26) Blood Gas Base Excess -1.1 mmol/L (-2-2) 0.2 mmol/L (-2-2) Blood Gas Oxygen Saturation 88 % (90-100) 95 % (90-100) Arterial Blood pH 7.39 (7.380-7.420) 7.41 (7.380-7.420) Arterial Blood Partial Pressure CO2 39 mmHg (38-42) 39 mmHg (38-42) Arterial Blood Partial Pressure O2 61 mmHg (61-120) 92 mmHg (61-120) Arterial Blood Oxygen Content 14.6 Vol % (12.0-20.0) 14.1 Vol % (12.0-20.0) Arterial Blood Carboxyhemoglobin 1.0 % (0-4) 0.9 % (0-4) Arterial Blood Methemoglobin 1.3 % (0-2) 1.5 % (0-2) Blood Gas Hemoglobin 11.7 G/DL (12.0-16.0) 10.5 G/DL (12.0-16.0) Oxygen Delivery Device VENTILATOR VENTILATOR Blood Gas Ventilator Setting PRVC/AC PRVC/AC Blood Gas Inspired Oxygen 60 % 75 % White Blood Count 13.4 TH/MM3 (4.0-11.0) Red Blood Count 3.70 MIL/MM3 (4.50-5.90) Hemoglobin 10.9 GM/DL (13.0-17.0) Hematocrit 33.4 % (39.0-51.0) Mean Corpuscular Volume 90.2 FL (80.0-100.0) Mean Corpuscular Hemoglobin 29.4 PG (27.0-34.0) Mean Corpuscular Hemoglobin Concent 32.6 % (32.0-36.0) Red Cell Distribution Width 15.0 % (11.6-17.2) Platelet Count 104 TH/MM3 (150-450) Mean Platelet Volume 10.1 FL (7.0-11.0) Neutrophils (%) (Auto) 93.6 % (16.0-70.0) Lymphocytes (%) (Auto) 2.5 % (9.0-44.0) Monocytes (%) (Auto) 3.8 % (0.0-8.0) Eosinophils (%) (Auto) 0.0 % (0.0-4.0) Basophils (%) (Auto) 0.1 % (0.0-2.0) Neutrophils # (Auto) 12.6 TH/MM3 (1.8-7.7) Lymphocytes # (Auto) 0.3 TH/MM3 (1.0-4.8) Monocytes # (Auto) 0.5 TH/MM3 (0-0.9) Eosinophils # (Auto) 0.0 TH/MM3 (0-0.4) Basophils # (Auto) 0.0 TH/MM3 (0-0.2) CBC Comment DIFF FINAL Differential Comment Blood Urea Nitrogen 34 MG/DL (7-18) Creatinine 1.42 MG/DL (0.60-1.30) Random Glucose 199 MG/DL (74-106) Total Protein 5.3 GM/DL (6.4-8.2) Albumin 2.3 GM/DL (3.4-5.0) Calcium Level 7.5 MG/DL (8.5-10.1) Phosphorus Level 2.5 MG/DL (2.5-4.9) Magnesium Level 2.4 MG/DL (1.5-2.5) Alkaline Phosphatase 47 U/L (45-117) Aspartate Amino Transf (AST/SGOT) 36 U/L (15-37) Alanine Aminotransferase (ALT/SGPT) 62 U/L (12-78) Total Bilirubin 0.3 MG/DL (0.2-1.0) Sodium Level 142 MEQ/L (136-145) Potassium Level 3.6 MEQ/L (3.5-5.1) Chloride Level 108 MEQ/L (98-107) Carbon Dioxide Level 26.6 MEQ/L (21.0-32.0) Anion Gap 7 MEQ/L (5-15) Estimat Glomerular Filtration Rate 50 ML/MIN (>89) Phenytoin (Dilantin) Level 9.7 MCG/ML (10.0-20.0) Vancomycin Level Trough 12.2 MCG/ML (5.0-10.0) Result Diagram: 10/09/17 0500 10/09/17 0500 Microbiology Microbiology Date/Time Source Procedure Growth Status 10/06/17 17:02 Blood Peripheral Aerobic Blood Culture - Preliminary NO GROWTH IN 3 DAYS Resulted 10/06/17 17:02 Blood Peripheral Anaerobic Blood Culture - Preliminary NO GROWTH IN 3 DAYS Resulted 10/06/17 16:50 Blood Peripheral Aerobic Blood Culture - Preliminary NO GROWTH IN 3 DAYS Resulted 10/06/17 16:50 Blood Peripheral Anaerobic Blood Culture - Preliminary NO GROWTH IN 3 DAYS Resulted 10/06/17 16:19 Sputum Endotracheal Gram Stain - Final Complete 10/06/17 16:19 Sputum Endotracheal Sputum Culture - Final HEAVY GROWTH NORMAL RESPIRATORY NATO Complete Procedures * 10/06/17 -endotracheal intubation * 10/06/17 -fiberoptic bronchoscopy * 10/06/17 -cooling catheter placement . Assessment and Plan Disease Oriented Problem List: (1) Acute on chronic respiratory failure with hypoxia and hypercapnia (2) Anoxic brain injury (3) Status epilepticus (4) Cardiogenic shock (5) Aspiration pneumonia (6) PEA (Pulseless electrical activity) Symptom Scale: (1) Dyspnea 0-10 Scale: Unable to quantify (2) Pain 0-10 Scale: Unable to quantify Pertinent Non-Medical Issues Psychosocial:As per previous palliative care consultation, patient was was born in [place] and graduated high school there, enlisted in the [employer] in 1970 and remaining there until 1997. He worked as a tank commander. He states he was never and had no children. Spiritual: No mormonism affiliation's. Legal: Living will completed. Ethical issues impacting care: Patient incapacitated for medical decision- making secondary to clinical condition. Living will requested not to contact his family under any circumstances. During prior hospitalization, patient declined to a point a decision maker voluntarily. If decisions need to be made and patient unable, he prefers a court appointed guardian/social work advantage. . Important Contacts Friend/landlord (not decision maker): Yudelka Stuartn . . Prognosis Mr. Arellano is a 67 y/o male with a medical history significant for COPD, diabetes mellitus, hypertension and obesity. Patient with multiple recent acute hospitalizations secondary to respiratory distress, COPD exacerbation. Patient currently intubated on mechanical ventilation status post PEA arrest x 2. Currently presented with myoclonic jerking at bedside concerning for anoxic brain injury. Overall prognosis appears very poor. . Code Status: Full Code Plan * CODE STATUS: Full code by default. * HEALTHCARE DECISION-MAKING: Patient lacks medical decision-making capacity secondary to clinical condition, anoxic brain injury. During prior hospitalization, patient completed living will specifically requesting to follow [place] statue to identify a licensed clinical social welfare research worker to assist with decisions. In addition, he requested not to contact his family under any circumstances. Pending [employer] work [employer] consultation. * GOALS OF CARE: Goals of care aggressive by default. Pending [employer] consultation as per patient's above-mentioned written directives. Living will completed during prior hospitalization 10/04/17, patient indicated that he would not want his life prolonged by artificial means if he had a terminal condition, end-stage condition, or was in a persistent vegetative state. He further requests it to be written that he does not want his family contacted under any circumstances. Requests he not be buried and desires his ashes to be spread at sea. He also expressed his desires for a Licensed Clinical Family Life Counselor ( [employer]) to serve in this role should he be unable to make his own medical decisions. [employer] Work PharmAssistant farm loan representative to see patient tomorrow 10/10/17, pall care to follow-up. * SYMPTOMS: =Dyspnea: Acute on chronic respiratory failure, COPD, status post PEA arrest x2. Currently endotracheally intubated on mechanical ventilation. Metallurgical Tester following. = Seizure activity: Neurology following for anoxic encephalopathy, myoclonic jerking versus seizure activity. Patient currently on Keppra, Cerebyx and phenobarbital. Ongoing propofol and Versed drips. = Pain: Likely secondary to endotracheal intubation, lines, bedrest. Fentanyl drip ordered, however, on hold secondary to hypotension. Patient appears comfortable at the time of my visit. * Case discussed with bedside RN Bryanna. Dr. Winkler notified of [employer] involvement. * Palliative care will continue to follow up for further clarification of goals of care as patient's clinical course continues to evolve. . Time Spent Total Floor Time (mins): 22 (Total time to review medical records, physical exam, case discussion with bedside RN, pillowcase cleaner. ) >50% Counseling/Coord of Care: Yes Attestation To help prompt me to consider important information that might be impacting today's encounter and assessment, information from prior notes written by myself or my colleagues may have been "brought forward" into today's note. My signature on this note, however, is an attestation that I personally performed the exam, history, and/or decision-making noted today, and, unless otherwise indicated, the interactions with patient, family, and staff as well as the review of records all occurred today. I also attest that the listed assessment and stated plan reflect my best clinical judgment today based on the combination of historical information, prior notes, and today's exam/ interactions. When time spent is documented, it refers only to time spent today by the signer, or if indicated, combined time spent today by collaborating physician/nurse practitioner. Avis Frey October 09, 2017 16:30
--- NOTE | 2017-10-09 20:58 | MG ---
cc: Lewis Her MD EEG RECORD NUMBER: [id number]. DATE OF : 1950 DESCRIPTION OF RECORD: Continuous generalized sharp discharges occurring, 0.5-1 Hz, interictal, suppressed delta activity. Some variability in frequency. No driving with photic stimulation. Higher voltage sharp epileptiform discharges burst suppression type pattern occurring toward the end of the recording. INTERPRETATION: Continuous generalized epileptiform discharges noted. Frequency as above. Status type of appearance at times. Clinical correlation. Lewis Her MD MG/SB , 08:47 PM , 08:57 PM
[2017-10-10] VITALS (18 sets, daily range): BP systolic 92–175; BP diastolic 50–81; PULSE 109–134; RESP 16–27; TEMP 100.4–101.8; O2SAT 93–99
[2017-10-10] MEDS: INSULIN NovoLIN REGULAR SUPPLEMENTAL SCALE SQ SCH ×4 (01:17→19:38)
[2017-10-10] MEDS: CHLORHEXIDINE GLUCONATE 2 % 1 PACK (2 CLOTHS) TOP SCH ×2 (03:08→19:39)
[2017-10-10] MEDS: EPOPROSTENOL NEB SOLUTION 50 NG/KG/MIN 100 ML NEB SCH ×8 (03:08→23:28)
[2017-10-10] MEDS: RESP: ALBUTEROL 2.5 MG/IPRATROPIUM 0.5 MG NEB (SCH) INH ×3 (04:41→14:57)
[2017-10-10 05:23] LABS: AUTOMATED NEUTROPHIL # 10.1 TH/MM3 (1.8-7.7); BASOPHIL % 0.1 % (0.0-2.0); HEMATOCRIT 31.2 % (39.0-51.0); HEMOGLOBIN 10.4 GM/DL (13.0-17.0); LYMPH % 4.3 % (9.0-44.0); LYMPHOCYTE # 0.5 TH/MM3 (1.0-4.8); MEAN CELL VOLUME 90.2 FL (80.0-100.0); MEAN CORPUSCULAR HGB CONC 33.2 % (32.0-36.0); MEAN PLATELET VOLUME 9.9 FL (7.0-11.0); MONO % 6.8 % (0.0-8.0); MONOCYTE # 0.8 TH/MM3 (0-0.9); NEUT % 88.8 % (16.0-70.0); PLATELET COUNT 127 TH/MM3 (150-450); RED BLOOD COUNT 3.46 MIL/MM3 (4.50-5.90); RED CELL DISTRIBUTION WIDTH 15.8 % (11.6-17.2); WHITE BLOOD COUNT 11.4 TH/MM3 (4.0-11.0)
[2017-10-10 05:53] LABS: ALBUMIN 2.4 GM/DL (3.4-5.0); ALKALINE PHOSPHATASE 76 U/L (45-117); ALT (GPT) 65 U/L (12-78); AST (GOT) 43 U/L (15-37); BICARBONATE 24.8 MEQ/L (21.0-32.0); BLOOD UREA NITROGEN 45 MG/DL (7-18); CALCIUM 8.1 MG/DL (8.5-10.1); CHLORIDE 108 MEQ/L (98-107); CREATININE 1.92 MG/DL (0.60-1.30); GLOMERULAR FILTRATION RATE 35 ML/MIN (>89); GLUCOSE,RANDOM 172 MG/DL (74-106); MAGNESIUM 2.8 MG/DL (1.5-2.5); PHOSPHORUS 2.9 MG/DL (2.5-4.9); RANDOM VANCOMYCIN 16.2 COMMENT; SODIUM (NA) 144 MEQ/L (136-145); TOTAL BILIRUBIN ADULT 0.3 MG/DL (0.2-1.0); TOTAL PROTEIN 5.9 GM/DL (6.4-8.2)
[2017-10-10] MEDS: PIPERACIL-TAZO 3.375 GM PREMIX 50 ML IV SCH ×4 (06:04→23:24)
[2017-10-10] MEDS: FOSPHENYTOIN SODIUM 100 MG PE/2 ML VIAL IV SCH ×3 (06:04→21:47)
[2017-10-10] MEDS: methylPREDNISolone SOD SUCC 40 MG/1 ML VIAL IV PUSH SCH ×2 (06:04→18:00)
[2017-10-10] MEDS: ARTIFICIAL TEARS OPTH SOLN 15 ML BTL EACH EYE SCH ×3 (08:09→18:01)
[2017-10-10] MEDS: CHLORHEXIDINE 0.12% (ORAL KIT) 15 ML CUP MT SCH ×2 (08:09→19:38)
[2017-10-10] MEDS: levETIRAcetam INJ 100 ML IV SCH ×2 (08:10→21:47)
[2017-10-10] MEDS: HEPARIN SODIUM - SQ 10,000 UNITS/ML VIAL SQ SCH ×2 (08:10→21:00)
[2017-10-10] MEDS: FAMOTIDINE 20 MG/2 ML VIAL IV PUSH SCH ×2 (08:10→21:47)
--- NOTE | 2017-10-10 08:49 | HHI.CCPN ---
Subjective Remarks/Hospital Course 10/06: Elderly gentleman with unknown medical history, except known emphysema, brought in by paramedics post cardiac arrest. History is obtained entirely from the ED chart. Patient's name and age as well as comorbidities are unknown. There is no family available. Per ED chart patient called 911 for respiratory distress. On EMS arrival patient suffered a respiratory arrest. He was intubated in the field, downtime was less than 5 minutes. He was given 1 dose of epinephrine and CPR was done with spontaneous return of spontaneous circulation. On ED arrival patient was in PEA, therefore resuscitative efforts were continued and patient received an additional 2 rounds of CPR with 2 epinephrine being given. ROSC was obtained after approximately less than 5 minutes. [facility] now consulted for ICU admission. Patient was seen in ER, unresponsive, with questionable myoclonic versus seizure-like activity. He did not receive any sedation. 10/07: Patient continued to worsen over the night, with progressive hypercapnia and hypoxia, requiring pressure control ventilation with inverse ratio. Currently on a PEEP of 8 at 100% O2. He continues to require 24 hour EEG monitoring. Patient patient was noticed to have episode of seizure on EEG therefore he received Ativan and fosphenytoin with subsequent drop in blood pressure. He received 1 L fluid bolus and he was started on norepinephrine infusion. Currently on norepinephrine at 15 mcg/min. Morning chest x-ray reviewed, developing bilateral infiltrates and new right lower lobe infiltrate. Of note, patient was identified as being Mr. Arellano, recently admitted to our hospital for acute hypercapnic respiratory failure, acute COPD exacerbation, extubated last Sunday discharged on Sunday morning. 10/08 Patient remains intubated and sedated with Diprivan. Myoclonic jerks vs seizures noted this morning given Ativan 2mg x1 overnight. EEG yesterday showed artifact, no epileptiform activity. Afebrile. 10/09 Patient remains sedated with Diprivan, Versed and intubated. On continuous EEG monitoring. 10/10 Patient remains intubated and sedated with Diprivan and Versed. Spiked fever with Tmax 102 at midnight. Objective Vital Signs Date Time Temp Pulse Resp B/P (MAP) Pulse Ox O2 Delivery O2 Flow Rate FiO2 10/10/17 07:41 93 40 10/10/17 04:00 101.8 120 118/56 (76) 98/54 (69) 10/09/17 16:00 26 5/12/18 12:56 Ventilator Intake and Output 10/10/17 10/10/17 10/11/17 08:00 16:00 00:00 Intake Total 758 ml Output Total 600 ml Balance 158 ml Result Diagram: 10/10/17 0431 10/10/17 0431 Other Results Laboratory Tests Test 10/10/17 04:31 10/10/17 05:56 White Blood Count 11.4 TH/MM3 Red Blood Count 3.46 MIL/MM3 Hemoglobin 10.4 GM/DL Hematocrit 31.2 % Mean Corpuscular Volume 90.2 FL Mean Corpuscular Hemoglobin 30.0 PG Mean Corpuscular Hemoglobin Concent 33.2 % Red Cell Distribution Width 15.8 % Platelet Count 127 TH/MM3 Mean Platelet Volume 9.9 FL Neutrophils (%) (Auto) 88.8 % Lymphocytes (%) (Auto) 4.3 % Monocytes (%) (Auto) 6.8 % Eosinophils (%) (Auto) 0.0 % Basophils (%) (Auto) 0.1 % Neutrophils # (Auto) 10.1 TH/MM3 Lymphocytes # (Auto) 0.5 TH/MM3 Monocytes # (Auto) 0.8 TH/MM3 Eosinophils # (Auto) 0.0 TH/MM3 Basophils # (Auto) 0.0 TH/MM3 CBC Comment DIFF FINAL Differential Comment Blood Urea Nitrogen 45 MG/DL Creatinine 1.92 MG/DL Random Glucose 172 MG/DL Total Protein 5.9 GM/DL Albumin 2.4 GM/DL Calcium Level 8.1 MG/DL Phosphorus Level 2.9 MG/DL Magnesium Level 2.8 MG/DL Alkaline Phosphatase 76 U/L Aspartate Amino Transf (AST/SGOT) 43 U/L Alanine Aminotransferase (ALT/SGPT) 65 U/L Total Bilirubin 0.3 MG/DL Sodium Level 144 MEQ/L Potassium Level 3.9 MEQ/L Chloride Level 108 MEQ/L Carbon Dioxide Level 24.8 MEQ/L Anion Gap 11 MEQ/L Estimat Glomerular Filtration Rate 35 ML/MIN Random Vancomycin Level 16.2 COMMENT Blood Gas Puncture Site ART LINE Blood Gas Patient Temperature 98.6 Blood Gas HCO3 27 mmol/L Blood Gas Base Excess 2.9 mmol/L Blood Gas Oxygen Saturation 94 % Arterial Blood pH 7.44 Arterial Blood Partial Pressure CO2 40 mmHg Arterial Blood Partial Pressure O2 85 mmHg Arterial Blood Oxygen Content 14.1 Vol % Arterial Blood Carboxyhemoglobin 1.1 % Arterial Blood Methemoglobin 1.5 % Blood Gas Hemoglobin 10.6 G/DL Oxygen Delivery Device VENTILATOR Blood Gas Ventilator Setting PRVC/ AC Blood Gas Inspired Oxygen 50 % Imaging Last Impressions Chest X-Ray 10/08/17 0600 Signed Impressions: Service Date/Time: Sunday, October 08, 2017 04:56 - CONCLUSION: 1. Basilar airspace consolidation, right greater than left with small effusions. Endotracheal tube and nasogastric tube in good position. Dar Mackenzie MD CT Angiography 10/06/17 1219 Signed Impressions: Service Date/Time: Friday, October 06, 2017 12:52 - CONCLUSION: No central pulmonary emboli Course interstitial changes both lungs, fibrosis versus atypical failure. Ayo Ibanez MD FACR Head CT 10/06/17 1216 Signed Impressions: Service Date/Time: Friday, October 06, 2017 12:38 - CONCLUSION: Moderate motion otherwise negative Ayo Ibanez MD FACR Objective Remarks General - elderly gentleman, intubated, unresponsive, ill-appearing HEENT - pupils are equal, non-reactive, sclerae are anicteric, neck is supple, no rigidity, no JVD, orally intubated CV - regular heart sound, no murmurs Chest - decreased air entry bilateral, no wheezes appreciated Abdomen - soft, appears non-tender, distended, BS present Skin - no rashes, no cyanosis Extremities - no edema, + peripheral pulses, no clubbing Neuro - limited, intubated, unresponsive, paralyzed A/P Assessment and Plan 1. Post PEA arrest 2 -total downtime approximately less than 10 minutes, undergoing hypothermia protocol 2. Acute on chronic hypoxic and hypercapnic respiratory failure 3. Acute encephalopathy with concern for anoxia 4. Status epilepticus 5. Circulatory shock 6. YOLIE 7. Aspiration pneumonia 8 Cardiomyopathy Plan Neuro: On Versed and Diprivan infusion for sedation. For repeat CT brain. EEG 10/06: Artifact, no epileptiform activity. On Cerebyx 100mg IV Q8, Keppra, Phenobarb 65mg Q8 Pulm: Continue with vent support keep sats >92% Bronchodilators, ICU vent bundle. PRVC, 550/26/0.9, PEEP:10. FIO2 50%, decrease FIO2 40% Decrease Solumederol 40mg Q12 On Flolan 30,000ng/ml at 5ml/hr CV: Monitor HR and BP keep MAP>65mmHg Echo showed EF 35-40% : Monitor renal function, I/O's, electrolytes replacement per protocol. Cr: 1.92 from 1.42, patrick IV hydration- NS@50ml/hr GI: On tube feeds- Glucerna 1.5 @ 45ml/hr, On Pepcid for GI prophylaxis ID: Continue abx( Zosyn and Vanco)monitor for signs of infections ( Fever, WBC) Will panculture ( Blood, sputum, UA with cx if indicated) Endo: SSI for glycemic control Heme: Monitor CBC, check Hep PLT ab r/o HIT GI prophylaxis with Pepcid DVT prophylaxis with heparin and SCDs Palliative care is following CCT 30 mins Xu Raymundo MD October 10, 2017 08:49
[2017-10-10] MEDS: SODIUM CHLOR 0.9% 1000 ML INJ 1,000 ML IV SCH (09:47)
[2017-10-10 10:06] LABS: BACTERIA, URINE RARE /hpf; BILIRUBIN, URINE NEG (NEG); BLOOD, URINE TRACE (NEG); GLUCOSE,URINE NEG (NEG); KETONE, URINE NEG (NEG); MUCUS URINE FEW /lpf (OCC); NITRITE,URINE NEG (NEG); PH, URINE 5.5 (5.0-8.5); URINE COLOR YELLOW (YELLW/STRAW); URINE LEUKOCYTE ESTERASE NEG (NEG)
[2017-10-10] MEDS ORDERED: VANCOMYCIN INJ 1,750 MG in SODIUM CHLORID 0.9% 500 ML INJ 500 ML IV ONE (11:00)
--- NOTE | 2017-10-10 11:23 | HHI.HCPN ---
Reason for visit a. To assist with evaluation and management of symptoms including: dyspnea. b. To assist medical decision maker(s) with: better understanding of current medical conditions; weighing benefits/burdens of medical treatment options; making medical treatment decisions. . Subjective/Interval History Care follow-up for further clarifications of goals of care. Patient seen in medical ICU. Remains endotracheally intubated on mechanical ventilation. Myoclonic activity noted to jaw, remains on propofol and Versed drip. EEG 10/09 revealing continuous generalized epileptiform discharges, status type of appearance at times. Patient remains on phenobarbital, Keppra and Cerebyx ATC and Ativan as needed for seizure activity. Patient febrile overnight, max temp 102. Patient tachycardic with heart rate in the 120s during my visit. Discussed with bedside RN Emani and Dr. Timmons. . Family/friend interactions Case discussed with social work advantage healthcare proxy Natalia Fatima [facility]. . Advance Directives Living Will: Copy in medical record Health Care Surrogate: Never completed Durable Power of Exceptional Children'S Teacher: Never completed Advance Directive Specifics Health Care Surrogate(s): Living will completed 10/04/17. Patient indicated wishing to "follow [place] statue to identify a licensed clinical director social welfare to assist with decisions". In addition, patient stating "I do not want my family contacted under any circumstances. I do not want to be buried". . Documented care wishes: Living will with standard verbiage as it pertains to terminal condition, end- stage condition or persistent vegetative state. . Objective Vital Signs Date Time Temp Pulse Resp B/P (MAP) Pulse Ox O2 Delivery O2 Flow Rate FiO2 10/10/17 10:00 129 10/10/17 08:00 134 10/10/17 07:41 93 40 10/10/17 04:42 94 50 10/10/17 04:00 101.8 120 118/56 (76) 96 98/54 (69) 10/10/17 04:00 50 10/10/17 01:05 96 50 10/10/17 00:00 50 10/10/17 00:00 102.0 118 104/59 (74) 96 92/50 (64) 10/09/17 20:00 101.8 120 101/59 (73) 94 90/52 (65) 10/09/17 20:00 50 10/09/17 19:38 95 50 10/09/17 18:00 120 10/09/17 17:00 122 10/09/17 17:00 101.5 122 89/49 (62) 93 10/09/17 16:00 116 10/09/17 16:00 99.7 116 26 102/55 (71) 94 94/51 (65) 10/09/17 16:00 50 10/09/17 15:30 93 50 10/09/17 15:00 114 10/09/17 15:00 101.1 114 82/47 (59) 93 10/09/17 14:00 117 10/09/17 14:00 101.1 117 92/51 (65) 94 10/09/17 13:00 119 10/09/17 13:00 100.8 119 108/50 (69) 96 10/09/17 12:00 120 10/09/17 12:00 50 10/09/17 12:00 99.0 120 98/54 (69) 95 108/53 (71) Intake & Output 10/10/17 10/10/17 07:00 19:00 Intake Total 1108 ml Output Total 600 ml Balance 508 ml Intake Oral 0 ml IV Total 589 ml Tube Feeding 459 ml Other 60 ml Output Urine Total 600 ml Gastric Drainage Total 0 ml # Bowel Movements 0 Physical Exam CONSTITUTIONAL/GENERAL: This is an adequately nourished patient, in no apparent distress. Myoclonic jerking noted to Jaw. TUBES/LINES/DRAINS: ETT, OG, PIV's, SCDs, Banerjee catheter, bilateral soft wrist restraints. SKIN: No jaundice, rashes, or lesions. Ecchymoses on upper extremities. No wounds seen anteriorly. Skin temperature appropriate. Not diaphoretic. HEAD: Atraumatic. Normocephalic. EYES: Pupils equal and round and reactive. No scleral icterus. No injection or drainage. ENT: Hearing grossly normal. Nose without bleeding or purulent drainage. Moist oral mucosa. NECK: Trachea midline. Supple, nontender. CARDIOVASCULAR: Tachycardic with heart rate in the mid 120s. Regular rhythm without murmurs. RESPIRATORY/CHEST: Symmetric, unlabored respirations. Clear to auscultation. Endotracheally intubated on mechanical ventilation. GASTROINTESTINAL: Abdomen soft, large. Bowel sounds present. GENITOURINARY: Without palpable bladder distension. Banerjee catheter in place. MUSCULOSKELETAL: Extremities without clubbing, cyanosis, or edema. No mottling or clubbing. NEUROLOGICAL: Unresponsive to verbal or tactile stimuli. Myoclonic jerking noted to Jaw. PSYCHIATRIC: Unable to assess given medical condition, on ventilator support. . Diagnostic Tests Laboratory Laboratory Tests Test 10/07/17 13:18 10/07/17 15:30 10/07/17 21:30 10/08/17 05:00 Blood Gas Puncture Site ART LINE Blood Gas Patient Temperature 98.6 Blood Gas HCO3 21 mmol/L (22-26) Blood Gas Base Excess -5.1 mmol/L (-2-2) Blood Gas Oxygen Saturation 92 % (90-100) Arterial Blood pH 7.27 (7.380-7.420) Arterial Blood Partial Pressure CO2 46 mmHg (38-42) Arterial Blood Partial Pressure O2 82 mmHg (61-120) Arterial Blood Oxygen Content 17.2 Vol % (12.0-20.0) Arterial Blood Carboxyhemoglobin 0.9 % (0-4) Arterial Blood Methemoglobin 1.2 % (0-2) Blood Gas Hemoglobin 13.2 G/DL (12.0-16.0) Oxygen Delivery Device VENTILATOR Blood Gas Ventilator Setting Blood Gas Inspired Oxygen 100 % Blood Urea Nitrogen 25 MG/DL (7-18) 25 MG/DL (7-18) 26 MG/DL (7-18) Creatinine 0.93 MG/DL (0.60-1.30) 0.98 MG/DL (0.60-1.30) 1.03 MG/DL (0.60-1.30) Random Glucose 243 MG/DL (74-106) 213 MG/DL (74-106) 174 MG/DL (74-106) Total Protein 5.3 GM/DL (6.4-8.2) 5.0 GM/DL (6.4-8.2) 5.0 GM/DL (6.4-8.2) Calcium Level 7.1 MG/DL (8.5-10.1) 7.3 MG/DL (8.5-10.1) 7.3 MG/DL (8.5-10.1) Magnesium Level 2.1 MG/DL (1.5-2.5) 1.9 MG/DL (1.5-2.5) 1.9 MG/DL (1.5-2.5) Sodium Level 141 MEQ/L (136-145) 141 MEQ/L (136-145) 141 MEQ/L (136-145) Potassium Level 4.4 MEQ/L (3.5-5.1) 3.7 MEQ/L (3.5-5.1) 3.5 MEQ/L (3.5-5.1) Chloride Level 107 MEQ/L (98-107) 108 MEQ/L (98-107) 108 MEQ/L (98-107) Carbon Dioxide Level 23.0 MEQ/L (21.0-32.0) 23.3 MEQ/L (21.0-32.0) 24.0 MEQ/L (21.0-32.0) Anion Gap 11 MEQ/L (5-15) 10 MEQ/L (5-15) 9 MEQ/L (5-15) Estimat Glomerular Filtration Rate 81 ML/MIN (>89) 76 ML/MIN (>89) 72 ML/MIN (>89) Protein Corrected Calcium 8.1 MG/DL (8.5-10.1) 8.5 MG/DL (8.5-10.1) 8.5 MG/DL (8.5-10.1) Phenytoin (Dilantin) Level 7.7 MCG/ML (10.0-20.0) White Blood Count 14.5 TH/MM3 (4.0-11.0) Red Blood Count 4.10 MIL/MM3 (4.50-5.90) Hemoglobin 11.9 GM/DL (13.0-17.0) Hematocrit 36.9 % (39.0-51.0) Mean Corpuscular Volume 90.0 FL (80.0-100.0) Mean Corpuscular Hemoglobin 29.1 PG (27.0-34.0) Mean Corpuscular Hemoglobin Concent 32.3 % (32.0-36.0) Red Cell Distribution Width 15.2 % (11.6-17.2) Platelet Count 95 TH/MM3 (150-450) Mean Platelet Volume 9.0 FL (7.0-11.0) Neutrophils (%) (Auto) 93.3 % (16.0-70.0) Lymphocytes (%) (Auto) 4.1 % (9.0-44.0) Monocytes (%) (Auto) 2.5 % (0.0-8.0) Eosinophils (%) (Auto) 0.0 % (0.0-4.0) Basophils (%) (Auto) 0.1 % (0.0-2.0) Neutrophils # (Auto) 13.6 TH/MM3 (1.8-7.7) Lymphocytes # (Auto) 0.6 TH/MM3 (1.0-4.8) Monocytes # (Auto) 0.4 TH/MM3 (0-0.9) Eosinophils # (Auto) 0.0 TH/MM3 (0-0.4) Basophils # (Auto) 0.0 TH/MM3 (0-0.2) CBC Comment AUTO DIFF Differential Total Cells Counted 100 Neutrophils % (Manual) 83 % (16-70) Band Neutrophils % 11 % (0-6) Lymphocytes % 4 % (9-44) Monocytes % 1 % (0-8) Neutrophils # (Manual) 13.8 TH/MM3 (1.8-7.7) Metamyelocytes 1 % (0-1) Differential Comment FINAL DIFF MANUAL Platelet Estimate LOW (NORMAL) Platelet Morphology Comment NORMAL (NORMAL) Red Cell Morphology Comment NORMAL (NORMAL) Albumin 2.4 GM/DL (3.4-5.0) Phosphorus Level 2.8 MG/DL (2.5-4.9) Alkaline Phosphatase 49 U/L (45-117) Aspartate Amino Transf (AST/SGOT) 35 U/L (15-37) Alanine Aminotransferase (ALT/SGPT) 86 U/L (12-78) Total Bilirubin 0.4 MG/DL (0.2-1.0) Test 10/08/17 05:12 10/09/17 04:15 10/09/17 05:00 10/09/17 08:11 Blood Gas Puncture Site ART LINE ART LINE Blood Gas Patient Temperature 98.6 98.6 Blood Gas HCO3 23 mmol/L (22-26) 24 mmol/L (22-26) Blood Gas Base Excess -1.1 mmol/L (-2-2) 0.2 mmol/L (-2-2) Blood Gas Oxygen Saturation 88 % (90-100) 95 % (90-100) Arterial Blood pH 7.39 (7.380-7.420) 7.41 (7.380-7.420) Arterial Blood Partial Pressure CO2 39 mmHg (38-42) 39 mmHg (38-42) Arterial Blood Partial Pressure O2 61 mmHg (61-120) 92 mmHg (61-120) Arterial Blood Oxygen Content 14.6 Vol % (12.0-20.0) 14.1 Vol % (12.0-20.0) Arterial Blood Carboxyhemoglobin 1.0 % (0-4) 0.9 % (0-4) Arterial Blood Methemoglobin 1.3 % (0-2) 1.5 % (0-2) Blood Gas Hemoglobin 11.7 G/DL (12.0-16.0) 10.5 G/DL (12.0-16.0) Oxygen Delivery Device VENTILATOR VENTILATOR Blood Gas Ventilator Setting PRVC/AC PRVC/AC Blood Gas Inspired Oxygen 60 % 75 % White Blood Count 13.4 TH/MM3 (4.0-11.0) Red Blood Count 3.70 MIL/MM3 (4.50-5.90) Hemoglobin 10.9 GM/DL (13.0-17.0) Hematocrit 33.4 % (39.0-51.0) Mean Corpuscular Volume 90.2 FL (80.0-100.0) Mean Corpuscular Hemoglobin 29.4 PG (27.0-34.0) Mean Corpuscular Hemoglobin Concent 32.6 % (32.0-36.0) Red Cell Distribution Width 15.0 % (11.6-17.2) Platelet Count 104 TH/MM3 (150-450) Mean Platelet Volume 10.1 FL (7.0-11.0) Neutrophils (%) (Auto) 93.6 % (16.0-70.0) Lymphocytes (%) (Auto) 2.5 % (9.0-44.0) Monocytes (%) (Auto) 3.8 % (0.0-8.0) Eosinophils (%) (Auto) 0.0 % (0.0-4.0) Basophils (%) (Auto) 0.1 % (0.0-2.0) Neutrophils # (Auto) 12.6 TH/MM3 (1.8-7.7) Lymphocytes # (Auto) 0.3 TH/MM3 (1.0-4.8) Monocytes # (Auto) 0.5 TH/MM3 (0-0.9) Eosinophils # (Auto) 0.0 TH/MM3 (0-0.4) Basophils # (Auto) 0.0 TH/MM3 (0-0.2) CBC Comment DIFF FINAL Differential Comment Blood Urea Nitrogen 34 MG/DL (7-18) Creatinine 1.42 MG/DL (0.60-1.30) Random Glucose 199 MG/DL (74-106) Total Protein 5.3 GM/DL (6.4-8.2) Albumin 2.3 GM/DL (3.4-5.0) Calcium Level 7.5 MG/DL (8.5-10.1) Phosphorus Level 2.5 MG/DL (2.5-4.9) Magnesium Level 2.4 MG/DL (1.5-2.5) Alkaline Phosphatase 47 U/L (45-117) Aspartate Amino Transf (AST/SGOT) 36 U/L (15-37) Alanine Aminotransferase (ALT/SGPT) 62 U/L (12-78) Total Bilirubin 0.3 MG/DL (0.2-1.0) Sodium Level 142 MEQ/L (136-145) Potassium Level 3.6 MEQ/L (3.5-5.1) Chloride Level 108 MEQ/L (98-107) Carbon Dioxide Level 26.6 MEQ/L (21.0-32.0) Anion Gap 7 MEQ/L (5-15) Estimat Glomerular Filtration Rate 50 ML/MIN (>89) Phenytoin (Dilantin) Level 9.7 MCG/ML (10.0-20.0) Vancomycin Level Trough 12.2 MCG/ML (5.0-10.0) Test 10/10/17 04:31 10/10/17 05:56 10/10/17 09:25 10/10/17 09:30 White Blood Count 11.4 TH/MM3 (4.0-11.0) Red Blood Count 3.46 MIL/MM3 (4.50-5.90) Hemoglobin 10.4 GM/DL (13.0-17.0) Hematocrit 31.2 % (39.0-51.0) Mean Corpuscular Volume 90.2 FL (80.0-100.0) Mean Corpuscular Hemoglobin 30.0 PG (27.0-34.0) Mean Corpuscular Hemoglobin Concent 33.2 % (32.0-36.0) Red Cell Distribution Width 15.8 % (11.6-17.2) Platelet Count 127 TH/MM3 (150-450) Mean Platelet Volume 9.9 FL (7.0-11.0) Neutrophils (%) (Auto) 88.8 % (16.0-70.0) Lymphocytes (%) (Auto) 4.3 % (9.0-44.0) Monocytes (%) (Auto) 6.8 % (0.0-8.0) Eosinophils (%) (Auto) 0.0 % (0.0-4.0) Basophils (%) (Auto) 0.1 % (0.0-2.0) Neutrophils # (Auto) 10.1 TH/MM3 (1.8-7.7) Lymphocytes # (Auto) 0.5 TH/MM3 (1.0-4.8) Monocytes # (Auto) 0.8 TH/MM3 (0-0.9) Eosinophils # (Auto) 0.0 TH/MM3 (0-0.4) Basophils # (Auto) 0.0 TH/MM3 (0-0.2) CBC Comment DIFF FINAL Differential Comment Blood Urea Nitrogen 45 MG/DL (7-18) Creatinine 1.92 MG/DL (0.60-1.30) Random Glucose 172 MG/DL (74-106) Total Protein 5.9 GM/DL (6.4-8.2) Albumin 2.4 GM/DL (3.4-5.0) Calcium Level 8.1 MG/DL (8.5-10.1) Phosphorus Level 2.9 MG/DL (2.5-4.9) Magnesium Level 2.8 MG/DL (1.5-2.5) Alkaline Phosphatase 76 U/L (45-117) Aspartate Amino Transf (AST/SGOT) 43 U/L (15-37) Alanine Aminotransferase (ALT/SGPT) 65 U/L (12-78) Total Bilirubin 0.3 MG/DL (0.2-1.0) Sodium Level 144 MEQ/L (136-145) Potassium Level 3.9 MEQ/L (3.5-5.1) Chloride Level 108 MEQ/L (98-107) Carbon Dioxide Level 24.8 MEQ/L (21.0-32.0) Anion Gap 11 MEQ/L (5-15) Estimat Glomerular Filtration Rate 35 ML/MIN (>89) Random Vancomycin Level 16.2 COMMENT Blood Gas Puncture Site ART LINE Blood Gas Patient Temperature 98.6 Blood Gas HCO3 27 mmol/L (22-26) Blood Gas Base Excess 2.9 mmol/L (-2-2) Blood Gas Oxygen Saturation 94 % (90-100) Arterial Blood pH 7.44 (7.380-7.420) Arterial Blood Partial Pressure CO2 40 mmHg (38-42) Arterial Blood Partial Pressure O2 85 mmHg (61-120) Arterial Blood Oxygen Content 14.1 Vol % (12.0-20.0) Arterial Blood Carboxyhemoglobin 1.1 % (0-4) Arterial Blood Methemoglobin 1.5 % (0-2) Blood Gas Hemoglobin 10.6 G/DL (12.0-16.0) Oxygen Delivery Device VENTILATOR Blood Gas Ventilator Setting PRVC/ AC Blood Gas Inspired Oxygen 50 % Urine Color YELLOW (YELLW/STRAW) Urine Turbidity CLEAR (CLEAR) Urine pH 5.5 (5.0-8.5) Urine Specific [place] 1.028 (1.002-1.035) Urine Protein 30 mg/dL (NEG-TRACE) Urine Glucose (UA) NEG mg/dL (NEG) Urine Ketones NEG mg/dL (NEG) Urine Occult Blood TRACE (NEG) Urine Nitrite NEG (NEG) Urine Bilirubin NEG (NEG) Urine Urobilinogen LESS THAN 2.0 MG/DL (LESS Urine Leukocyte Esterase NEG (NEG) Urine RBC 2 /hpf (0-3) Urine WBC 2 /hpf (0-5) Urine Bacteria RARE /hpf (NONE) Urine Mucus FEW /lpf (OCC) Microscopic Urinalysis Comment CATH-CULTURE IND Result Diagram: 10/10/17 0431 10/10/17 0431 Microbiology Microbiology Date/Time Source Procedure Growth Status 10/10/17 09:30 Blood Peripheral Aerobic Blood Culture Pending Received 10/10/17 09:30 Blood Peripheral Anaerobic Blood Culture Pending Received 10/10/17 09:30 Sputum Endotracheal Gram Stain Pending Received 10/10/17 09:30 Sputum Endotracheal Sputum Culture Pending Received 10/10/17 09:30 Urine Clean Catch Urine Culture Pending Received Procedures * 10/06/17 -endotracheal intubation * 10/06/17 -fiberoptic bronchoscopy * 10/06/17 -cooling catheter placement . Assessment and Plan Disease Oriented Problem List: (1) Acute on chronic respiratory failure with hypoxia and hypercapnia (2) Anoxic brain injury (3) Status epilepticus (4) Cardiogenic shock (5) Aspiration pneumonia (6) PEA (Pulseless electrical activity) Symptom Scale: (1) Dyspnea 0-10 Scale: Unable to quantify (2) Pain 0-10 Scale: Unable to quantify Pertinent Non-Medical Issues Psychosocial:As per previous palliative care consultation, patient was was born in [place] and graduated high school there, enlisted in the [employer] in 1970 and remaining there until 1997. He worked as a tank commander. He states he was never and had no children. Spiritual: No catholic affiliation's. Legal: Living will completed. Ethical issues impacting care: Patient incapacitated for medical decision- making secondary to clinical condition. Living will requested not to contact his family under any circumstances. During prior hospitalization, patient declined to a point a decision maker voluntarily. If decisions need to be made and patient unable, he prefers a court appointed guardian/social work advantage. . Important Contacts Friend/landlord (not decision maker): Yudelka Butler . . Prognosis Mr. Arellano is a 67 y/o male with a medical history significant for COPD, diabetes mellitus, hypertension and obesity. Patient with multiple recent acute hospitalizations secondary to respiratory distress, COPD exacerbation. Patient currently intubated on mechanical ventilation status post PEA arrest x 2. Currently presented with myoclonic jerking at bedside concerning for anoxic brain injury. Overall prognosis appears very poor. . Code Status: Full Code Plan * CODE STATUS: Full code by default. * HEALTHCARE DECISION-MAKING: Patient lacks medical decision-making capacity secondary to clinical condition, anoxic brain injury. During prior hospitalization, patient completed living will specifically requesting to follow [place] statue to identify a licensed clinical director social welfare to assist with decisions. In addition, he requested not to contact his family under any circumstances. Social Work Advantage healthcare proxy is Natalia Fatima LCSW. * GOALS OF CARE: 10/10/17 -Social Work Advantage healthcare proxy Natalia Fatima LCSW electing to proceed with compassionate withdrawal of life support given patient's overall poor prognosis and known wishes as is stated in his living will. Bioethics committee review has been requested. * SYMPTOMS: =Dyspnea: Acute on chronic respiratory failure, COPD, status post PEA arrest x2. Currently endotracheally intubated on mechanical ventilation. [employer] Back Feeder following. = Seizure activity: Neurology following for anoxic encephalopathy, myoclonic jerking versus seizure activity. Patient currently on Keppra, Cerebyx and phenobarbital. Ongoing propofol and Versed drips. = Pain: Likely secondary to endotracheal intubation, lines, bedrest. Fentanyl drip ordered, however, on hold secondary to hypotension. Patient appears comfortable at the time of my visit. * Case discussed with bedside RN Emani and Dr. Raymundo. Case discussed with neurology Dr. Timmons, very poor prognosis. * Palliative care will continue to follow up for further clarification of goals of care as patient's clinical course continues to evolve. . Time Spent Total Floor Time (mins): 37 (Total time to include review of medical records, physical exam, goals of care conversation with healthcare proxy, case discussion with neurology, attending and bedside RN.) >50% Counseling/Coord of Care: Yes Attestation To help prompt me to consider important information that might be impacting today's encounter and assessment, information from prior notes written by myself or my colleagues may have been "brought forward" into today's note. My signature on this note, however, is an attestation that I personally performed the exam, history, and/or decision-making noted today, and, unless otherwise indicated, the interactions with patient, family, and staff as well as the review of records all occurred today. I also attest that the listed assessment and stated plan reflect my best clinical judgment today based on the combination of historical information, prior notes, and today's exam/ interactions. When time spent is documented, it refers only to time spent today by the signer, or if indicated, combined time spent today by collaborating physician/nurse practitioner. Avis Frey October 10, 2017 11:23
--- NOTE | 2017-10-10 11:54 | RADRPT ---
EXAM DATE/TIME: 10/10/2017 11:31 [facility] COMPARISON: CT BRAIN W/O CONTRAST, October 06, 2017, 12:38. INDICATIONS : Seizures,post cardiac arrest RADIATION DOSE: 42.52 CTDIvol (mGy) MEDICAL HISTORY : Non-responsive. SURGICAL HISTORY : Non-responsive. ENCOUNTER: Initial ACUITY: 1 day PAIN SCALE: Non-responsive LOCATION: cranial TECHNIQUE: Multiple contiguous axial images were obtained of the head. Using automated exposure control and adj ustment of the mA and/or kV according to patient size, radiation dose was kept as low as reasonably a chievable to obtain optimal diagnostic quality images. DICOM format image data is available electro nically for review and comparison. FINDINGS: CEREBRUM: The ventricles are normal for age. No evidence of midline shift, mass lesion, hemorrhage or acute in farction. No extra-axial fluid collections are seen. POSTERIOR FOSSA: The cerebellum and brainstem are intact. The 4th ventricle is midline. The cerebellopontine angle i s unremarkable. EXTRACRANIAL: The visualized portion of the orbits is intact. SKULL: The calvaria is intact. No evidence of skull fracture. CONCLUSION: Negative for acute process. No signs of increased cerebral edema. Ayo Ibanez MD FACR on October 10, 2017 at 11:50 Board Certified Radiologist. This report was verified electronically.
[2017-10-10] MEDS: ACETAMINOPHEN 325 MG TAB PO PRN (12:39)
[2017-10-10] MEDS: MIDAZOLAM 50 MG/NS 50 ML DRIP Premix IV PRN (15:05)
--- NOTE | 2017-10-10 21:11 | MG ---
cc: Lewis Her MD ELECTROENCEPHALOGRAM RECORD NUMBER: [id number]. DESCRIPTION: One Hz generalized discharges occurring in a BIPLED type fashion, with interictal expression bursts of 4-5 Hz theta activity occurring after some sharp discharges. Facial twitching noted off and on during the recording. There is a lot of very high voltage sharp waves persisting. Single lead EKG showing sinus rhythm. INTERPRETATION: Persistent BIPLED type of appearance, with slight reduction in frequency. Clinical correlation. MD JIM Dawn/CATHY , 08:59 PM , 09:10 PM
[2017-10-10] MEDS: PROPOFOL 1000 MG/100 ML INJ 100 ML IV PRN (23:24)
[2017-10-11] VITALS (8 sets, daily range): BP systolic 110–160; BP diastolic 58–89; PULSE 38–117; RESP 5–20; TEMP 99.2; O2SAT 30–98
[2017-10-11] MEDS: INSULIN NovoLIN REGULAR SUPPLEMENTAL SCALE SQ SCH ×3 (01:33→14:00)
[2017-10-11] MEDS ORDERED: RESP: ALBUTEROL 2.5 MG/3 ML NEB (PRN) NEB (03:15)
[2017-10-11] MEDS: RESP: ALBUTEROL 2.5 MG/IPRATROPIUM 0.5 MG NEB (SCH) NEB ×4 (04:00→16:38)
[2017-10-11] MEDS: SODIUM CHLOR 0.9% 1000 ML INJ 1,000 ML IV SCH (04:45)
[2017-10-11] MEDS: PIPERACIL-TAZO 3.375 GM PREMIX 50 ML IV SCH ×2 (05:09→12:06)
[2017-10-11] MEDS: methylPREDNISolone SOD SUCC 40 MG/1 ML VIAL IV PUSH SCH (05:10)
[2017-10-11] MEDS: FOSPHENYTOIN SODIUM 100 MG PE/2 ML VIAL IV SCH ×2 (05:10→14:57)
[2017-10-11] MEDS: ACETAMINOPHEN 325 MG TAB PO PRN ×2 (06:00→12:06)
[2017-10-11 06:32] LABS: PHENYTOIN (DILANTIN) 5.1 MCG/ML (10.0-20.0)
[2017-10-11 06:33] LABS: RANDOM VANCOMYCIN 13.1 COMMENT
[2017-10-11] MEDS: ARTIFICIAL TEARS OPTH SOLN 15 ML BTL EACH EYE SCH ×2 (08:12→12:08)
[2017-10-11] MEDS: FAMOTIDINE 20 MG/2 ML VIAL IV PUSH SCH (08:12)
[2017-10-11] MEDS: HEPARIN SODIUM - SQ 10,000 UNITS/ML VIAL SQ SCH (08:12)
[2017-10-11] MEDS: levETIRAcetam INJ 100 ML IV SCH (08:12)
[2017-10-11] MEDS: CHLORHEXIDINE 0.12% (ORAL KIT) 15 ML CUP MT SCH (08:14)
--- NOTE | 2017-10-11 08:50 | HHI.CCPN ---
Subjective Remarks/Hospital Course 10/06: Elderly gentleman with unknown medical history, except known emphysema, brought in by paramedics post cardiac arrest. History is obtained entirely from the ED chart. Patient's name and age as well as comorbidities are unknown. There is no family available. Per ED chart patient called 911 for respiratory distress. On EMS arrival patient suffered a respiratory arrest. He was intubated in the field, downtime was less than 5 minutes. He was given 1 dose of epinephrine and CPR was done with spontaneous return of spontaneous circulation. On ED arrival patient was in PEA, therefore resuscitative efforts were continued and patient received an additional 2 rounds of CPR with 2 epinephrine being given. ROSC was obtained after approximately less than 5 minutes. [facility] now consulted for ICU admission. Patient was seen in ER, unresponsive, with questionable myoclonic versus seizure-like activity. He did not receive any sedation. 10/07: Patient continued to worsen over the night, with progressive hypercapnia and hypoxia, requiring pressure control ventilation with inverse ratio. Currently on a PEEP of 8 at 100% O2. He continues to require 24 hour EEG monitoring. Patient patient was noticed to have episode of seizure on EEG therefore he received Ativan and fosphenytoin with subsequent drop in blood pressure. He received 1 L fluid bolus and he was started on norepinephrine infusion. Currently on norepinephrine at 15 mcg/min. Morning chest x-ray reviewed, developing bilateral infiltrates and new right lower lobe infiltrate. Of note, patient was identified as being Mr. Arellano, recently admitted to our hospital for acute hypercapnic respiratory failure, acute COPD exacerbation, extubated last Sunday discharged on Sunday morning. 10/08 Patient remains intubated and sedated with Diprivan. Myoclonic jerks vs seizures noted this morning given Ativan 2mg x1 overnight. EEG yesterday showed artifact, no epileptiform activity. Afebrile. 10/09 Patient remains sedated with Diprivan, Versed and intubated. On continuous EEG monitoring. 10/10 Patient remains intubated and sedated with Diprivan and Versed. Spiked fever with Tmax 102 at midnight. 10/11 No events overnight intubated and sedated T: 101.1 at 12am. Objective Vital Signs Date Time Temp Pulse Resp B/P (MAP) Pulse Ox O2 Delivery O2 Flow Rate FiO2 10/11/17 06:00 111 10/11/17 04:00 16 133/58 (83) 95 10/11/17 04:00 50 10/11/17 00:00 101.1 Intake and Output 10/11/17 10/11/17 10/11/17 07:59 15:59 23:59 Intake Total 1698 ml Output Total 750 ml Balance 948 ml Result Diagram: 10/10/17 0431 10/10/17 0431 Other Results Laboratory Tests Test 10/10/17 09:25 10/10/17 09:30 10/11/17 05:00 Urine Color YELLOW Urine Turbidity CLEAR Urine pH 5.5 Urine Specific [place] 1.028 Urine Protein 30 mg/dL Urine Glucose (UA) NEG mg/dL Urine Ketones NEG mg/dL Urine Occult Blood TRACE Urine Nitrite NEG Urine Bilirubin NEG Urine Urobilinogen LESS THAN 2.0 MG/DL Urine Leukocyte Esterase NEG Urine RBC 2 /hpf Urine WBC 2 /hpf Urine Bacteria RARE /hpf Urine Mucus FEW /lpf Microscopic Urinalysis Comment CATH-CULTURE IND Random Vancomycin Level 13.1 COMMENT Phenytoin (Dilantin) Level 5.1 MCG/ML Phenobarbital Level LESS THAN 2.1 MCG/ML Imaging Last Impressions Head CT 10/10/17 0000 Signed Impressions: Service Date/Time: Tuesday, October 10, 2017 11:31 - CONCLUSION: Negative for acute process. No signs of increased cerebral edema. Ayo Ibanez MD FACR Chest X-Ray 10/08/17 0600 Signed Impressions: Service Date/Time: Sunday, October 08, 2017 04:56 - CONCLUSION: 1. Basilar airspace consolidation, right greater than left with small effusions. Endotracheal tube and nasogastric tube in good position. Dar Mackenzie MD CT Angiography 10/06/17 1219 Signed Impressions: Service Date/Time: Friday, October 06, 2017 12:52 - CONCLUSION: No central pulmonary emboli Course interstitial changes both lungs, fibrosis versus atypical failure. Ayo Ibanez MD FACR Objective Remarks General - elderly gentleman, intubated, unresponsive, ill-appearing HEENT - pupils are equal, non-reactive, sclerae are anicteric, neck is supple, no rigidity, no JVD, orally intubated CV - regular heart sound, no murmurs Chest - decreased air entry bilateral, no wheezes appreciated Abdomen - soft, appears non-tender, distended, BS present Skin - no rashes, no cyanosis Extremities - no edema, + peripheral pulses, no clubbing Neuro - limited, intubated, unresponsive, paralyzed A/P Assessment and Plan 1. Post PEA arrest 2 -total downtime approximately less than 10 minutes, undergoing hypothermia protocol 2. Acute on chronic hypoxic and hypercapnic respiratory failure 3. Acute encephalopathy with concern for anoxia 4. Status epilepticus 5. Circulatory shock 6. YOLIE 7. Aspiration pneumonia 8 Cardiomyopathy Plan Neuro: On Versed and Diprivan infusion for sedation. Repeat CT brain 10/10: No acute process EEG 10/06: Artifact, no epileptiform activity. On Cerebyx 100mg IV Q8, Keppra, Phenobarb 65mg Q8 Pulm: Continue with vent support keep sats >92% Bronchodilators, ICU vent bundle. PRVC, 550/26/0.9, PEEP:10. FIO2 50%, decrease FIO2 40% Decrease Solumederol 40mg Q12 On Flolan 30,000ng/ml at 5ml/hr CV: Monitor HR and BP keep MAP>65mmHg Echo showed EF 35-40% : Monitor renal function, I/O's, electrolytes replacement per protocol. IV hydration- NS@50ml/hr, follow up on BMP GI: On tube feeds- Glucerna 1.5 @ 45ml/hr, On Pepcid for GI prophylaxis ID: Continue abx( Zosyn, Vanco, add Levaquin)monitor for signs of infections ( Fever, WBC) Follow up on blood and sputum cx 10/10 Endo: SSI for glycemic control Heme: Monitor CBC, check Hep PLT ab r/o HIT GI prophylaxis with Pepcid DVT prophylaxis with heparin and SCDs Palliative care is following [employer] healthcare proxy Natalia Akua [employer] electing to proceed with compassionate withdrawal of life support given patient's overall poor prognosis and known wishes as is stated in his living will. Bioethics committee review has been requested per palliative care Level 3 Xu Raymundo MD October 11, 2017 08:50
[2017-10-11] MEDS ORDERED: LEVOFLOXACIN 750 MG PREMIX INJ 150 ML IV SCH (09:00)
[2017-10-11 10:29] LABS: AUTOMATED NEUTROPHIL # 7.8 TH/MM3 (1.8-7.7); BASOPHIL % 0.1 % (0.0-2.0); EOSINOPHIL % 0.3 % (0.0-4.0); HEMATOCRIT 29.3 % (39.0-51.0); HEMOGLOBIN 9.6 GM/DL (13.0-17.0); LYMPH % 7.8 % (9.0-44.0); LYMPHOCYTE # 0.7 TH/MM3 (1.0-4.8); MEAN CELL VOLUME 91.6 FL (80.0-100.0); MEAN CORPUSCULAR HEMOGLOBIN 29.9 PG (27.0-34.0); MEAN CORPUSCULAR HGB CONC 32.6 % (32.0-36.0); MEAN PLATELET VOLUME 9.3 FL (7.0-11.0); MONO % 6.7 % (0.0-8.0); MONOCYTE # 0.6 TH/MM3 (0-0.9); NEUT % 85.1 % (16.0-70.0); PLATELET COUNT 101 TH/MM3 (150-450); RED CELL DISTRIBUTION WIDTH 15.9 % (11.6-17.2); WHITE BLOOD COUNT 9.2 TH/MM3 (4.0-11.0)
[2017-10-11] MEDS: PROPOFOL 1000 MG/100 ML INJ 100 ML IV PRN (10:29)
[2017-10-11] MEDS ORDERED: VANCOMYCIN INJ 2,000 MG in SODIUM CHLORID 0.9% 500 ML INJ 500 ML IV ONE (11:00)
[2017-10-11] MEDS ORDERED: FOSPHENYTOIN SODIUM 500 MG PE/10 ML VIAL IV ONE (11:00)
[2017-10-11] MEDS ORDERED: PHENobarbital SOD 130 MG/ML VIAL IM ONE (11:00)
--- NOTE | 2017-10-11 11:02 | HHI.PR ---
Subjective Remarks sedated when lowered has myoclonus elevated temps. Objective Vital Signs Date Time Temp Pulse Resp B/P (MAP) Pulse Ox O2 Delivery O2 Flow Rate FiO2 10/11/17 08:58 97 40 10/11/17 08:00 40 10/11/17 08:00 99.2 85 18 110/75 (87) 98 110/89 (96) Arterial Line 10/11/17 06:00 111 10/11/17 04:00 106 10/11/17 04:00 106 16 133/58 (83) 95 10/11/17 04:00 50 10/11/17 03:25 98 40 10/11/17 00:00 117 10/11/17 00:00 101.1 117 20 160/68 (98) 98 10/11/17 00:00 50 10/10/17 23:05 96 50 10/10/17 22:00 109 10/10/17 20:00 101.5 122 16 153/75 (101) 98 10/10/17 20:00 50 10/10/17 20:00 122 10/10/17 19:53 94 50 10/10/17 18:00 50 10/10/17 18:00 117 10/10/17 16:00 117 10/10/17 16:00 40 10/10/17 16:00 101.3 117 27 102/54 (70) 94 10/10/17 14:57 94 50 10/10/17 14:27 26 10/10/17 14:00 120 10/10/17 12:00 101.8 128 26 127/60 (82) 96 10/10/17 12:00 40 10/10/17 12:00 128 10/10/17 11:44 98 50 10/10/17 11:20 99 100 I/O 10/10/17 10/10/17 10/10/17 10/11/17 10/11/17 10/11/17 07:00 15:00 23:00 07:00 15:00 23:00 Intake Total 858 ml 600 ml 1054 ml 1898 ml Output Total 600 ml 650 ml 750 ml Balance 258 ml 600 ml 404 ml 1148 ml Intake Oral 0 ml 0 ml IV Total 339 ml 600 ml 630 ml 1350 ml Tube Feeding 459 ml 364 ml 488 ml Tube Irrigant 60 ml Other 60 ml 60 ml Output Urine Total 600 ml 650 ml 750 ml Gastric Drainage Total 0 ml 0 ml # Bowel Movements 0 0 0 Result Diagram: 10/11/17 0945 10/10/17 0431 Objective Remarks intub/vent sedated pp pupils no gaze overbreathing vent by 1bpm. not following commands no w/d to pain Assessment and Plan Assessment and Plan anoxic encephalopathy w/myoclonus -keppra -cerebyx-give extra 500 cont 100mg tid,check level in am-last level low but so is albumin. -extra 130mg PB ,cont 100 mg q8 -levels in am -eeg in am. -poor prognosis for meaningful neurological recovery. Kim Timmons MD October 11, 2017 11:01
[2017-10-11 11:07] LABS: ALBUMIN 2.2 GM/DL (3.4-5.0); ALKALINE PHOSPHATASE 56 U/L (45-117); ALT (GPT) 60 U/L (12-78); AST (GOT) 53 U/L (15-37); BICARBONATE 28.5 MEQ/L (21.0-32.0); BLOOD UREA NITROGEN 34 MG/DL (7-18); CALCIUM 7.6 MG/DL (8.5-10.1); CHLORIDE 110 MEQ/L (98-107); CREATININE 1.19 MG/DL (0.60-1.30); GLOMERULAR FILTRATION RATE 61 ML/MIN (>89); GLUCOSE,RANDOM 166 MG/DL (74-106); SODIUM (NA) 147 MEQ/L (136-145); TOTAL BILIRUBIN ADULT 0.4 MG/DL (0.2-1.0); TOTAL PROTEIN 5.5 GM/DL (6.4-8.2)
[2017-10-11] MEDS ORDERED: FOSPHENYTOIN INJ 500 MGPE in SODIUM CHLORIDE 0.9% INJ 50 ML IV ONE (11:30)
[2017-10-11] MEDS ORDERED: FREE WATER G-TUBE SCH (12:15)
--- NOTE | 2017-10-11 13:16 | HHI.HCPN ---
Reason for visit a. To assist with evaluation and management of symptoms including: dyspnea. b. To assist medical decision maker(s) with: better understanding of current medical conditions; weighing benefits/burdens of medical treatment options; making medical treatment decisions. . Subjective/Interval History Palliative care follow-up for further clarifications of goals of care. Patient seen in medical ICU. Remains endotracheally intubated on mechanical ventilation. Myoclonic activity noted to jaw and upper extremities, remains on propofol and Versed drip. EEG 10/10 revealing persistent epileptiform discharges. Patient remains on phenobarbital, Keppra and Cerebyx ATC, Ativan as needed for seizure activity. Patient febrile, max temp 101.1 this morning. UA negative. Patient tachycardic with heart rate in the mid 110s during my visit. Unresponsive to tactile or verbal stimuli. Discussed with bedside RN Emani and Dr. Timmons. . Family/friend interactions No family available. Case discussed with social work advantage proxy Nataliara Fatima [facility]. Case reviewed with [place] [employer] committee. Mrs. Fatima recommending withdrawal of life support given overall poor prognosis for meaningful recovery and patient's known wishes as stated in his living will. Case discussed with attending and Dr. Timmons, patient appropriate for compassionate withdrawal given the above. . Advance Directives Living Will: Copy in medical record Health Care Surrogate: Never completed Durable Power of Plant Tech: Never completed Advance Directive Specifics Health Care Surrogate(s): Living will completed 10/04/17. Patient indicated wishing to "follow [place] statue to identify a licensed clinical social services aide to assist with decisions". In addition, patient stating "I do not want my family contacted under any circumstances. I do not want to be buried". . Documented care wishes: Living will with standard verbiage as it pertains to terminal condition, end- stage condition or persistent vegetative state. . Significant change in goals: Compassionate withdrawal of life support. . Objective Vital Signs Date Time Temp Pulse Resp B/P (MAP) Pulse Ox O2 Delivery O2 Flow Rate FiO2 10/11/17 11:54 93 50 10/11/17 08:58 97 40 10/11/17 08:00 40 10/11/17 08:00 99.2 85 18 110/75 (87) 98 110/89 (96) Arterial Line 10/11/17 06:00 111 10/11/17 04:00 106 10/11/17 04:00 106 16 133/58 (83) 95 10/11/17 04:00 50 10/11/17 03:25 98 40 10/11/17 00:00 117 10/11/17 00:00 101.1 117 20 160/68 (98) 98 10/11/17 00:00 50 10/10/17 23:05 96 50 10/10/17 22:00 109 10/10/17 20:00 101.5 122 16 153/75 (101) 98 10/10/17 20:00 50 10/10/17 20:00 122 10/10/17 19:53 94 50 10/10/17 18:00 50 10/10/17 18:00 117 10/10/17 16:00 117 10/10/17 16:00 40 10/10/17 16:00 101.3 117 27 102/54 (70) 94 10/10/17 14:57 94 50 10/10/17 14:27 26 10/10/17 14:00 120 Intake & Output 10/11/17 10/11/17 07:00 19:00 Intake Total 2598 ml Output Total 1100 ml Balance 1498 ml Intake Oral 500 ml IV Total 1550 ml Tube Feeding 488 ml Other 60 ml Output Urine Total 1100 ml Gastric Drainage Total 0 ml # Bowel Movements 2 Physical Exam CONSTITUTIONAL/GENERAL: This is an adequately nourished patient, in no apparent distress. Myoclonic jerking noted to Jaw and upper extremities. TUBES/LINES/DRAINS: ETT, OG, PIV's, SCDs, Banerjee catheter, bilateral soft wrist restraints. SKIN: No jaundice, rashes, or lesions. Ecchymoses on upper extremities. No wounds seen anteriorly. Skin temperature appropriate. Not diaphoretic. HEAD: Atraumatic. Normocephalic. EYES: Pupils equal and round and reactive. No scleral icterus. No injection or drainage. ENT: Unable to evaluate hearing given clinical condition. Nose without bleeding or purulent drainage. Moist oral mucosa. NECK: Trachea midline. Supple, nontender. CARDIOVASCULAR: Tachycardic with heart rate in the mid 110s. Irregular rhythm without murmurs. RESPIRATORY/CHEST: Symmetric, unlabored respirations. Diminished breath sounds bilaterally. Endotracheally intubated on mechanical ventilation. GASTROINTESTINAL: Abdomen soft, large, obese. Bowel sounds present. GENITOURINARY: Without palpable bladder distension. Banerjee catheter in place. MUSCULOSKELETAL: Extremities without clubbing, cyanosis. Edema to bilateral upper and lower extremities. NEUROLOGICAL: Unresponsive to verbal or tactile stimuli. Myoclonic jerking noted to Jaw and upper extremities. PSYCHIATRIC: Unable to assess given medical condition, on ventilator support. . Diagnostic Tests Laboratory Laboratory Tests Test 10/09/17 04:15 10/09/17 05:00 10/09/17 08:11 10/10/17 04:31 Blood Gas Puncture Site ART LINE Blood Gas Patient Temperature 98.6 Blood Gas HCO3 24 mmol/L (22-26) Blood Gas Base Excess 0.2 mmol/L (-2-2) Blood Gas Oxygen Saturation 95 % (90-100) Arterial Blood pH 7.41 (7.380-7.420) Arterial Blood Partial Pressure CO2 39 mmHg (38-42) Arterial Blood Partial Pressure O2 92 mmHg (61-120) Arterial Blood Oxygen Content 14.1 Vol % (12.0-20.0) Arterial Blood Carboxyhemoglobin 0.9 % (0-4) Arterial Blood Methemoglobin 1.5 % (0-2) Blood Gas Hemoglobin 10.5 G/DL (12.0-16.0) Oxygen Delivery Device VENTILATOR Blood Gas Ventilator Setting PRVC/AC Blood Gas Inspired Oxygen 75 % White Blood Count 13.4 TH/MM3 (4.0-11.0) 11.4 TH/MM3 (4.0-11.0) Red Blood Count 3.70 MIL/MM3 (4.50-5.90) 3.46 MIL/MM3 (4.50-5.90) Hemoglobin 10.9 GM/DL (13.0-17.0) 10.4 GM/DL (13.0-17.0) Hematocrit 33.4 % (39.0-51.0) 31.2 % (39.0-51.0) Mean Corpuscular Volume 90.2 FL (80.0-100.0) 90.2 FL (80.0-100.0) Mean Corpuscular Hemoglobin 29.4 PG (27.0-34.0) 30.0 PG (27.0-34.0) Mean Corpuscular Hemoglobin Concent 32.6 % (32.0-36.0) 33.2 % (32.0-36.0) Red Cell Distribution Width 15.0 % (11.6-17.2) 15.8 % (11.6-17.2) Platelet Count 104 TH/MM3 (150-450) 127 TH/MM3 (150-450) Mean Platelet Volume 10.1 FL (7.0-11.0) 9.9 FL (7.0-11.0) Neutrophils (%) (Auto) 93.6 % (16.0-70.0) 88.8 % (16.0-70.0) Lymphocytes (%) (Auto) 2.5 % (9.0-44.0) 4.3 % (9.0-44.0) Monocytes (%) (Auto) 3.8 % (0.0-8.0) 6.8 % (0.0-8.0) Eosinophils (%) (Auto) 0.0 % (0.0-4.0) 0.0 % (0.0-4.0) Basophils (%) (Auto) 0.1 % (0.0-2.0) 0.1 % (0.0-2.0) Neutrophils # (Auto) 12.6 TH/MM3 (1.8-7.7) 10.1 TH/MM3 (1.8-7.7) Lymphocytes # (Auto) 0.3 TH/MM3 (1.0-4.8) 0.5 TH/MM3 (1.0-4.8) Monocytes # (Auto) 0.5 TH/MM3 (0-0.9) 0.8 TH/MM3 (0-0.9) Eosinophils # (Auto) 0.0 TH/MM3 (0-0.4) 0.0 TH/MM3 (0-0.4) Basophils # (Auto) 0.0 TH/MM3 (0-0.2) 0.0 TH/MM3 (0-0.2) CBC Comment DIFF FINAL DIFF FINAL Differential Comment Blood Urea Nitrogen 34 MG/DL (7-18) 45 MG/DL (7-18) Creatinine 1.42 MG/DL (0.60-1.30) 1.92 MG/DL (0.60-1.30) Random Glucose 199 MG/DL (74-106) 172 MG/DL (74-106) Total Protein 5.3 GM/DL (6.4-8.2) 5.9 GM/DL (6.4-8.2) Albumin 2.3 GM/DL (3.4-5.0) 2.4 GM/DL (3.4-5.0) Calcium Level 7.5 MG/DL (8.5-10.1) 8.1 MG/DL (8.5-10.1) Phosphorus Level 2.5 MG/DL (2.5-4.9) 2.9 MG/DL (2.5-4.9) Magnesium Level 2.4 MG/DL (1.5-2.5) 2.8 MG/DL (1.5-2.5) Alkaline Phosphatase 47 U/L (45-117) 76 U/L (45-117) Aspartate Amino Transf (AST/SGOT) 36 U/L (15-37) 43 U/L (15-37) Alanine Aminotransferase (ALT/SGPT) 62 U/L (12-78) 65 U/L (12-78) Total Bilirubin 0.3 MG/DL (0.2-1.0) 0.3 MG/DL (0.2-1.0) Sodium Level 142 MEQ/L (136-145) 144 MEQ/L (136-145) Potassium Level 3.6 MEQ/L (3.5-5.1) 3.9 MEQ/L (3.5-5.1) Chloride Level 108 MEQ/L (98-107) 108 MEQ/L (98-107) Carbon Dioxide Level 26.6 MEQ/L (21.0-32.0) 24.8 MEQ/L (21.0-32.0) Anion Gap 7 MEQ/L (5-15) 11 MEQ/L (5-15) Estimat Glomerular Filtration Rate 50 ML/MIN (>89) 35 ML/MIN (>89) Phenytoin (Dilantin) Level 9.7 MCG/ML (10.0-20.0) Vancomycin Level Trough 12.2 MCG/ML (5.0-10.0) Random Vancomycin Level 16.2 COMMENT Test 10/10/17 05:56 10/10/17 09:25 10/10/17 09:30 10/11/17 05:00 Blood Gas Puncture Site ART LINE Blood Gas Patient Temperature 98.6 Blood Gas HCO3 27 mmol/L (22-26) Blood Gas Base Excess 2.9 mmol/L (-2-2) Blood Gas Oxygen Saturation 94 % (90-100) Arterial Blood pH 7.44 (7.380-7.420) Arterial Blood Partial Pressure CO2 40 mmHg (38-42) Arterial Blood Partial Pressure O2 85 mmHg (61-120) Arterial Blood Oxygen Content 14.1 Vol % (12.0-20.0) Arterial Blood Carboxyhemoglobin 1.1 % (0-4) Arterial Blood Methemoglobin 1.5 % (0-2) Blood Gas Hemoglobin 10.6 G/DL (12.0-16.0) Oxygen Delivery Device VENTILATOR Blood Gas Ventilator Setting PRVC/ AC Blood Gas Inspired Oxygen 50 % Urine Color YELLOW (YELLW/STRAW) Urine Turbidity CLEAR (CLEAR) Urine pH 5.5 (5.0-8.5) Urine Specific [place] 1.028 (1.002-1.035) Urine Protein 30 mg/dL (NEG-TRACE) Urine Glucose (UA) NEG mg/dL (NEG) Urine Ketones NEG mg/dL (NEG) Urine Occult Blood TRACE (NEG) Urine Nitrite NEG (NEG) Urine Bilirubin NEG (NEG) Urine Urobilinogen LESS THAN 2.0 MG/DL (LESS Urine Leukocyte Esterase NEG (NEG) Urine RBC 2 /hpf (0-3) Urine WBC 2 /hpf (0-5) Urine Bacteria RARE /hpf (NONE) Urine Mucus FEW /lpf (OCC) Microscopic Urinalysis Comment CATH-CULTURE IND Random Vancomycin Level 13.1 COMMENT Phenytoin (Dilantin) Level 5.1 MCG/ML (10.0-20.0) Phenobarbital Level LESS THAN 2.1 MCG/ML Test 10/11/17 09:45 White Blood Count 9.2 TH/MM3 (4.0-11.0) Red Blood Count 3.20 MIL/MM3 (4.50-5.90) Hemoglobin 9.6 GM/DL (13.0-17.0) Hematocrit 29.3 % (39.0-51.0) Mean Corpuscular Volume 91.6 FL (80.0-100.0) Mean Corpuscular Hemoglobin 29.9 PG (27.0-34.0) Mean Corpuscular Hemoglobin Concent 32.6 % (32.0-36.0) Red Cell Distribution Width 15.9 % (11.6-17.2) Platelet Count 101 TH/MM3 (150-450) Mean Platelet Volume 9.3 FL (7.0-11.0) Neutrophils (%) (Auto) 85.1 % (16.0-70.0) Lymphocytes (%) (Auto) 7.8 % (9.0-44.0) Monocytes (%) (Auto) 6.7 % (0.0-8.0) Eosinophils (%) (Auto) 0.3 % (0.0-4.0) Basophils (%) (Auto) 0.1 % (0.0-2.0) Neutrophils # (Auto) 7.8 TH/MM3 (1.8-7.7) Lymphocytes # (Auto) 0.7 TH/MM3 (1.0-4.8) Monocytes # (Auto) 0.6 TH/MM3 (0-0.9) Eosinophils # (Auto) 0.0 TH/MM3 (0-0.4) Basophils # (Auto) 0.0 TH/MM3 (0-0.2) CBC Comment DIFF FINAL Differential Comment Blood Urea Nitrogen 34 MG/DL (7-18) Creatinine 1.19 MG/DL (0.60-1.30) Random Glucose 166 MG/DL (74-106) Total Protein 5.5 GM/DL (6.4-8.2) Albumin 2.2 GM/DL (3.4-5.0) Calcium Level 7.6 MG/DL (8.5-10.1) Alkaline Phosphatase 56 U/L (45-117) Aspartate Amino Transf (AST/SGOT) 53 U/L (15-37) Alanine Aminotransferase (ALT/SGPT) 60 U/L (12-78) Total Bilirubin 0.4 MG/DL (0.2-1.0) Sodium Level 147 MEQ/L (136-145) Potassium Level 4.2 MEQ/L (3.5-5.1) Chloride Level 110 MEQ/L (98-107) Carbon Dioxide Level 28.5 MEQ/L (21.0-32.0) Anion Gap 9 MEQ/L (5-15) Estimat Glomerular Filtration Rate 61 ML/MIN (>89) Result Diagram: 10/11/1745 10/11/17 0945 Microbiology Microbiology Date/Time Source Procedure Growth Status 10/10/17 13:00 Blood Peripheral Aerobic Blood Culture - Preliminary NO GROWTH IN 1 DAY Resulted 10/10/17 13:00 Blood Peripheral Anaerobic Blood Culture - Preliminary NO GROWTH IN 1 DAY Resulted 10/10/17 09:30 Blood Peripheral Aerobic Blood Culture - Preliminary NO GROWTH IN 1 DAY Resulted 10/10/17 09:30 Blood Peripheral Anaerobic Blood Culture - Preliminary NO GROWTH IN 1 DAY Resulted 10/10/17 09:30 Sputum Endotracheal Gram Stain - Final Resulted 10/10/17 09:30 Sputum Endotracheal Sputum Culture Pending Resulted 10/10/17 09:30 Urine Clean Catch Urine Culture - Preliminary NO GROWTH IN 24 HOURS. Resulted Imaging Last [address] 10/10/17 0000 Signed Impressions: Service Date/Time: Sunday, October 10, 2017 11:31 - CONCLUSION: Negative for acute process. No signs of increased cerebral edema. Ayo Ibanez MD FACR Procedures * 10/06/17 -endotracheal intubation * 10/06/17 -fiberoptic bronchoscopy * 10/06/17 -cooling catheter placement . Assessment and Plan Disease Oriented Problem List: (1) Acute on chronic respiratory failure with hypoxia and hypercapnia (2) Anoxic brain injury (3) Status epilepticus (4) Cardiogenic shock (5) Aspiration pneumonia (6) PEA (Pulseless electrical activity) Symptom Scale: (1) Dyspnea 0-10 Scale: Unable to quantify (2) Pain 0-10 Scale: Unable to quantify Pertinent Non-Medical Issues Psychosocial:As per previous palliative care consultation, patient was was born in [place] and graduated high school there, enlisted in the [employer] in 1970 and remaining there until 1997. He worked as a tank commander. He states he was never and had no children. Spiritual: No yazdanism affiliation's. Legal: Living will completed. Ethical issues impacting care: Patient incapacitated for medical decision- making secondary to clinical condition. Living will requested not to contact his family under any circumstances. During prior hospitalization, patient declined to a point a decision maker voluntarily. If decisions need to be made and patient unable, he prefers a court appointed guardian/social work advantage. . Important Contacts Friend/landlord (not decision maker): Yudelka Butler . . Prognosis Mr. Arellano is a 67 y/o male with a medical history significant for COPD, diabetes mellitus, hypertension and obesity. Patient with multiple recent acute hospitalizations secondary to respiratory distress, COPD exacerbation. Patient currently intubated on mechanical ventilation status post PEA arrest x 2. Currently presented with myoclonic jerking at bedside concerning for anoxic brain injury. Overall prognosis appears very poor. . Code Status: No Code Plan * CODE STATUS: No code. * HEALTHCARE DECISION-MAKING: Patient incapacitated for medical decision-making secondary to clinical condition, anoxic brain injury. Patient does not have a reasonable medical probability of recovering capacity in the setting of anoxic brain injury. During prior hospitalization, patient completed living will specifically requesting to follow [place] statue to identify a licensed clinical social services aide to assist with decisions. In addition, he requested not to contact his family under any circumstances. Social Work Advantage healthcare proxy is Natalia Evansdelicia RUSS. * GOALS OF CARE: 10/11/17 -Social Work Advantage healthcare proxy Natalia Fatima [employer] recommending to proceed with compassionate withdrawal of life support given patient's overall poor prognosis and known wishes as stated in his living will. Bioethics committee review completed 10/11/17. * SYMPTOMS: =Dyspnea: Acute on chronic respiratory failure, COPD, status post PEA arrest x2. Currently endotracheally intubated on mechanical ventilation. Lane Marker Installer following. = Seizure activity: Neurology following for anoxic encephalopathy, myoclonic jerking versus seizure activity. Patient currently on Keppra, Cerebyx and phenobarbital. Ongoing propofol and Versed drips. * Bioethics committee review completed. * Anticipatory guidance provided to Mrs. Fatima. * Case discussed with Jeovany Hudson, spiritual services. * Case discussed with bedside RN Emani, Dr. Winkler, Dr. Levy. Case discussed with neurology Dr. Timmons, very poor prognosis. * Palliative care will continue to follow up for further clarification of goals of care as patient's clinical course continues to evolve. . Time Spent Total Floor Time (mins): 52 (Time to include review medical records, physical exam, Bioethics committee review, GOC discussion with social services aide drainage proxy, case discussion with bedside RN, Dr. Timmons, Dr. Raymundo. ) >50% Counseling/Coord of Care: Yes Attestation To help prompt me to consider important information that might be impacting today's encounter and assessment, information from prior notes written by myself or my colleagues may have been "brought forward" into today's note. My signature on this note, however, is an attestation that I personally performed the exam, history, and/or decision-making noted today, and, unless otherwise indicated, the interactions with patient, family, and staff as well as the review of records all occurred today. I also attest that the listed assessment and stated plan reflect my best clinical judgment today based on the combination of historical information, prior notes, and today's exam/ interactions. When time spent is documented, it refers only to time spent today by the signer, or if indicated, combined time spent today by collaborating physician/nurse practitioner. Avis Frey October 11, 2017 13:16
[2017-10-11 13:59] LABS: HEPARIN INDUCED PLATELET AB NEGATIVE (NEGATIVE)
[2017-10-11] MEDS ORDERED: PHENobarbital SOD 130 MG/ML VIAL IM SCH ×2 (14:00→18:00)
[2017-10-11] MEDS: MIDAZOLAM 50 MG/NS 50 ML DRIP Premix IV PRN (14:02)
[2017-10-11] MEDS: EPOPROSTENOL NEB SOLUTION 50 NG/KG/MIN 100 ML NEB SCH ×2 (14:53)
[2017-10-11] MEDS ORDERED: MORPHINE SULFATE 8 MG/ML INJ IV PUSH ONE (17:30)
[2017-10-11] MEDS ORDERED: MIDAZOLAM 100 MG/100 ML INJ 100 ML IV PRN (17:30)
[2017-10-11] MEDS ORDERED: LORazepam 2 MG/ML VIAL IV PUSH ONE ×2 (17:30→17:45)
[2017-10-11] MEDS ORDERED: HYOSCYAMINE 0.5 MG/ML AMP IV PUSH ONE (17:30)
[2017-10-11] MEDS ORDERED: MORPHINE SULFATE 4 MG/ML INJ IV PUSH ONE (17:45)
[2017-10-11] MEDS ORDERED: FUROSEMIDE 20 MG/2 ML VIAL IV PUSH PRN (18:00)
[2017-10-11] MEDS ORDERED: HYOSCYAMINE 0.5 MG/ML AMP IV PUSH PRN (18:00)
[2017-10-11] MEDS ORDERED: MORPHINE SULFATE 4 MG/ML INJ IV PUSH PRN (18:00)
[2017-10-11] MEDS ORDERED: LORazepam 2 MG/ML VIAL IV PUSH PRN ×3 (18:00)
[2017-10-11] MEDS ORDERED: MORPHINE SULFATE 8 MG/ML INJ IV PUSH PRN (18:00)
[2017-10-11] MEDS ORDERED: MIDAZOLAM 50 MG/NS 50 ML DRIP Premix IV PRN (18:15)
[2017-10-11] MEDS ORDERED: LORazepam 2 MG/ML VIAL IV PUSH SCH (20:00)
[2017-10-11] MEDS ORDERED: MORPHINE SULFATE 4 MG/ML INJ IV PUSH SCH (20:00)
--- NOTE | 2017-10-11 20:36 | MG ---
cc: Lewis Her MD, Mandeep MD EEG RECORD [id number] BiPLEDS, variable frequency but more episodes of interictal suppression 1-3 seconds occurring off and on. Single lead EKG showing sinus rhythm. INTERPRETATION: BiPLEDS with more episodes of suppression lasting 1-3 seconds as noted above and, from that standpoint, perhaps slight improvement with persistently severely abnormal suggestive of severe generalized cortical injury. Clinical correlation. MD JIM Dawn/ , 08:24 PM , 08:36 PM
== END 2017-10-11 19:10 | disposition expired | DRG 264 ==
LOC: NEPC 11:43 → EDBD 12:04 → NEDA 12:04 → HIMN 13:05
PROVIDERS: ADMIT Internal Medicine Critical Care Medicine; ATTEND Internal Medicine Critical Care Medicine
PROC: 5A12012 Performance of Cardiac Output, Single, Manual (ICD-10-PCS; principal; 2017-10-06)
PROC: 0B9J8ZX Drainage of Left Lower Lung Lobe, Via Natural or Artificial Opening Endoscopic, Diagnostic (ICD-10-PCS; 2017-10-06)
PROC: 5A1955Z Respiratory Ventilation, Greater than 96 Consecutive Hours (ICD-10-PCS; 2017-10-06)
PROC: 0T9B70Z Drainage of Bladder with Drainage Device, Via Natural or Artificial Opening (ICD-10-PCS; 2017-10-06)
PROC: B246ZZZ Ultrasonography of Right and Left Heart (ICD-10-PCS; 2017-10-06)
PROC: 02HV33Z Insertion of Infusion Device into Superior Vena Cava, Percutaneous Approach (ICD-10-PCS; 2017-10-06)
PROC: 0BH17EZ Insertion of Endotracheal Airway into Trachea, Via Natural or Artificial Opening (ICD-10-PCS; 2017-10-06)
DX: I46.9 Cardiac arrest, cause unspecified (principal); J96.21 Acute and chronic respiratory failure with hypoxia; J69.0 Pneumonitis due to inhalation of food and vomit; R57.0 Cardiogenic shock; N17.9 Acute kidney failure, unspecified; G93.1 Anoxic brain damage, not elsewhere classified; J96.22 Acute and chronic respiratory failure with hypercapnia; J43.9 Emphysema, unspecified; Z78.1 Physical restraint status; G40.901 Epilepsy, unspecified, not intractable, with status epilepticus; Z87.891 Personal history of nicotine dependence; E11.9 Type 2 diabetes mellitus without complications; E66.9 Obesity, unspecified; Z68.31 Body mass index [BMI] 31.0-31.9, adult; Z51.5 Encounter for palliative care; Z99.81 Dependence on supplemental oxygen; I10 Essential (primary) hypertension; E83.42 Hypomagnesemia; E83.51 Hypocalcemia
CPT/HCPCS: 31624; 36556; 36620; 51702; 70450; 71045; 71275; 76937; 80048; 80053; 80184; 80185; 80202; 80307; 81001; 82805; 82948; 83605; 83735; 84100; 84155; 84484; 85007; 85025; 85027; 85610; 85730; 86022; 86850; 86900; 86901; 87040; 87070; 87071; 87077; 87086; 87186; 87205; 87641; 88160; 92950; 93005; 93306; 94002; 94003; 94640; 94664; 94799; 95819; J0610; J1325; J1644; J1940; J1953; J1956; J2060; J2175; J2250; J2270; J2543; J2560; J2920; J3010; J3370; J3475; J7030; J7040; J7050; P9045; Q2009; Q9967